=== PATIENT | male | born 1960 | race Caucasian/White ===

== ENCOUNTER 2020-10-18 08:30 | Outpatient (CLI) | payer SELFPAY ==
--- NOTE | 2020-10-18 08:49 | ECG_ITS ---
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 Baseline heart rate was 66 beats per minute. Baseline blood pressure was 154/100 millimeters of mercury. Target heart rate was 161 beats per minute. Maximum heart rate achieved was 141, which was 87 % of the target heart rate. Maximum blood pressure was 237/124 millimeters of mercury. Total exercise time was 4 minutes 55 seconds. Maximum METs achieved was 6.3, maximum VO2 was 22.1. The reason for ending the test was maximum effort achieved. The patient complained of shortness of breath during the stress test, which then resolved at the end of the test. ELECTROCARDIOGRAM: BASELINE: Sinus rhythm, normal axis, no significant ST-T changes at the baseline noted. EXERCISE: At the peak exercise level, no significant ST-T changes suggestive of ischemia noted. RECOVERY: During the recovery period, heart rate dropped appropriately. No significant ST-T changes in the recovery suggestive of ischemia noted. CONCLUSION: 1. Exercise capacity poor. 2. Heart rate response was [tachycardic 3. Blood pressure response was [hypertensive 4. Symptoms not suggestive of ischemia. 5. Electrocardiogram portion of the stress test was not suggestive of ischemia. 6. Nuclear scan will be documented separately. Please note that due to poor exercise capacity and under achievements of METs specificity and sensitivity of EKG segment of stress test will be low. Electronically Signed On 10-18-2020 12:15:03 TIE FASTENER by PAOLA DUBOIS [id number]
--- NOTE | 2020-10-18 08:50 | NMCV_ITS ---
NM kartik perf SPECT r/s* [id number] Leroy Freeman Age: 60 Gender: M : 1960 Exam Date: 10/18/2020 09:59 Ordering Phys: Tonja Salmon Technologist: YULISA Lomax Exam Location: [facility] Indications: Chest pain STRESS TEST Please see separate stress test report in [facility] for full findings IMAGE PROTOCOL Rest/Stress 1 Exercise Day Radiopharmaceutical Dose (mCi) Administration Site Administered by Rest: Tc-99m 10.6 IV Alicia Kriss, SANDBLASTER GLASS Sestamibi Stress:Tc-99m 32.3 IV Alicia Kriss, SANDBLASTER GLASS Sestamibi Rest: 18-Oct-2020 60 Discovery 630 Stress: 18-Oct-2020 60 Discovery 630 Radiopharmaceutical was injected at 85 % maximum heart rate. Supine position only as patient was unable to lay prone. SPECT RESULTS Technical Quality: Good Raw Data Analysis: Soft tissue attenuation Image Corrections: No attenuation or motion correction applied Summed Stress Score: 19 Summed Rest Score: 0 Summed Difference Score: 19 PERFUSION FINDINGS Large area of severe reversibility noted on the stress images from basal to distal anterior anteroseptal and distal lateral wall suggestive of severe ischemia in LAD territory. Please note that patient was not able to perform prone images therefore cannot rule out artifact. FUNCTIONAL RESULTS (calculated via Gated SPECT) Stress Image LV EF (%): 60 Stress EDV (mL):141 TID: 1.18 Stress ESV (mL):57 FUNCTIONAL FINDINGS: Anterior and apical wall severe hypokinesis IMPRESSIONS Large area of severe ischemia noted in proximal to distal anterior anteroseptal and distal circumflex wall suggestive of high-grade lesion in LAD territory.TID ratio is elevated suggestive of ischemia in the absence of other parameters. EKG segment will be documented separately. This is a positive nuclear stress test. Tia Gutierrez MD (Electronically Signed) Final Date: 18 October 2020 12:10 S
[2020-10-18 08:51] VITALS: BMI 29.8
[2020-10-18 10:54] VITALS: BP 169/88; PULSE 87
--- NOTE | 2020-10-18 12:30 | PC.NURSE ---
STRESS TEST NOTE: DR DUBOIS WAS MADE AWARE OF THE EKG CHANGES WHILE THE PATIENT WAS ON THE TREADMILL AND ALSO THE CHANGES IN THE NUCLEAR IMAGES PRE AND POST TREADMILL. THE PATIENT AND HIS SPOUSE WERE BROUGHT TO [facility] ROOM 4. DR DUBOIS EXPLAINED THE NEED FOR AN ANGIOGRAM TO BE DONE ZEHRA. IT WAS AGREED THAT THE PATIENT WOULD GET A RAPID COVID TEST NOW ALONG WITH PRE CATH LABS, THEN HE WILL BE SEEN IN [facility] TODAY. LHC WAS SCHEDULED BY THIS NURSE WITH SERVANDO FOR MONDAY OCTOBER 19, 2020 AT 0700 WITH A CHECK IN TIME OF 0600. ORDERS WERE GIVEN BY DR DUBOIS FOR THE AFOREMENTIONED LABS WELL THE LHC AND A REPEAT RAPID COVID IN THE AM. LONG THE PATIENT HAS 2 NEGATIVE RAPID COVID TESTS WE WILL CONTINUE WITH THE LHC. THIS WAS ALL DISCUSSED IN DETAIL WITH THE PATIENT, HIS SPOUSE, DR DUBOIS, AND THIS NURSE. ALL PARTIES WERE IN AGGREANCE. THE RAPID COVID TEST AND LABS WERE DRAWN AND SENT TO LAB THEN THE PATIENT AND HIS SPOUSE WERE ESCORTED TO [facility] TO SEE DR DUBOIS IN THE CLINIC.
[2020-10-18 13:09] LABS: Basophils # 0.1 10^3/uL (0.0-0.1); Basophils % 0.6 %; Eosinophils # 0.3 10^3/uL (0.0-0.8); Eosinophils % 2.7 %; Hematocrit 54.9 % (42.0-52.0); Hemoglobin 17.6 g/dL (11.7-16.6); Lymphocytes # 3.2 10^3/uL (0.8-4.8); Lymphocytes % 31.8 %; Mean Corpuscular HGB Conc 32.1 g/dL (30.0-36.0); Mean Corpuscular Hemoglobin 29.6 pg (28.0-34.0); Mean Corpuscular Volume 92.4 fL (80-94); Monocytes # 0.8 10^3/uL (0.2-0.9); Monocytes % 7.6 %; Neutrophils % 56.4 %; Nucleated Red Blood Cells % 0 %; Platelet Count 159 10^3/cmm (130-400); Red Blood Count 5.94 10^6/uL (4.1-5.3); Red Cell Distribution Width 12.9 % (12.1-15.1); White Blood Count 9.9 10^3/uL (4.0-10.0)
[2020-10-18 13:31] LABS: INR 0.98 (0.8-1.2)
[2020-10-18 13:36] LABS: Anion Gap 11.7 (5-19); Blood Urea Nitrogen 24 mg/dL (6-20); Calcium 9.4 mg/dL (8.5-10.5); Carbon Dioxide 29 mmol/L (22-29); Chloride 101 mmol/L (98-107); Glomerular Filtration Rate 86.4 mL/min (90-130); Glucose 137 mg/dL (65-115); Osmolality Calculated 290 mOsm/kg (285-295); Potassium 4.7 mmol/L (3.5-5.1); Sodium 137 mmol/L (136-145)
[2020-10-18 13:40] LABS: SARS Covid-2 Antigen Negative (Negative)
== END 2020-10-18 08:31 | disposition home or self-care (01) ==
LOC: CDL 08:37
PROVIDERS: Internal Medicine Cardiovascular Disease; PCP Family Medicine; Visit Provider Registered Nurse
DX: Z01.812 Encounter for preprocedural laboratory examination (principal); Z11.59 Encounter for screening for other viral diseases; R07.9 Chest pain, unspecified; I24.9 Acute ischemic heart disease, unspecified
CPT/HCPCS: 78452; 80048; 85025; 85610; 87426; 93017; A9500

== ENCOUNTER 2020-10-19 05:58 | Day surgery (SDC) | payer SELFPAY ==
[2020-10-19] VITALS (35 sets, daily range): BP systolic 103–162; BP diastolic 63–91; PULSE 51–80; RESP 10–26; TEMP 35.9–36.8; O2SAT 91–96
[2020-10-19] MEDS: diphenhydrAMINE 50 mg Capsule PO (06:21)
[2020-10-19 06:37] LABS: SARS Covid-2 Antigen Negative (Negative)
--- NOTE | 2020-10-19 07:00 | XACV_ITS ---
Ht: 193 cm Wt: 163 kg BSA: 3.02 m2 Gender: Male : 1960 Exam Priority: Routine Procedure(s): Procedure Description: Diagnostic procedure Procedure Description: PCI procedure Procedure Description: Left Heart Catheterization Procedure Description: Drug Eluting Coronary Stent Procedure Description: PTCA Diagnostic Cath Status: Elective Diagnostic Findings * LM has 0% stenosis. * CX has 0% stenosis. * RCA has 0% stenosis. * Mid Left Anterior Descending Coronary Artery: Severe 90% stenosis, RIANA: 2 flow. * Coronary angiography shows right dominance. Interventional Findings * Mid Left Anterior Descending Coronary Artery: 90% stenosis treated with AB TREK 3.00X12 RX BALLOON, MDT R BOB 4.0X12 BRIAN, and MDT ASHLEY EUPHORA RX 4.85J37AH BALLOON. 0% residual stenosis, RIANA: 3 flow. Conclusions 1. Indication for 2. left heart cath: 3. Abnormal stress test with chest pain and shortness of breath. 4. There is severe coronary artery disease with one vessel disease. 5. Mid Left Anterior Descending Coronary Artery was treated with two Balloon and Drug Eluting Stent. Recommendations * 1-Return to inpatient for close monitoring and routine cath care 2-Risk factor modification for secondary prevention 3-Statin and aspirin 81 mg life--long, if tolerated 4-Patient was pre-loaded with 600 mg of Plavix, continue Plavix 75mg p.o. daily for at least one year. We will assess at the end of one year again to continue if further or not 5-Continue optimal medical management 6-Follow up with Dr. Gutierrez in four weeks and your primary care in 10 days. Diagnostic RX Recommendation: PCI w/o planned CABG Clinical Evaluation EBL: 5mL-10mL Procedural Details Procedure Consent Obtained. Admit Source: Out Patient. Pre-Procedure Time Out. Identified patient by full name and date of as verbalized by the patient/guarantor. Does the consent match the physician's order: Yes. Accurate & Complete Informed Consent: Yes. Inpatient/Outpatient History & Physical on Chart: Yes. If H&P is completed, is and addenduem needed: N/A; If yes, is the addendum complete: N/A. Visualize and Verify Site with Patient/Guarantor: N/A. Relevant Radiology Images available: N/A. Pre-op teaching completed and patient verbalized understanding. The risks, benefits, and alternatives of sedation and/or procedure were discussed by physician. The patient agrees to continue. Procedure started. Correct patient, site and procedure confirmed by cath team. PERRLA. Strong, equal hand hot man bilaterally. Lungs clear x 5 lobes. IV Site on Arrival: 20 gauge in the left anticubital. Pre Procedural Pulses: bilateral dorsalis pedis was 3+. Pre Procedural Pulses: bilateral posterior tibial was 3+. Pre Procedural Pulses: bilateral radial was 3+. Oxygen started at 2liters/min via nasal canula. bilateral groins was prepped with chloroprep then draped in the usual sterile fashion. right radial was prepped with chloroprep then draped in the usual sterile fashion. Baseline sample Acquired. HR: 63 BPM. Physician notified. Baseline sample Acquired. HR: 58 BPM. Physician arrived. Physician scrubbed in. Immediate Pre-Procedure Time Out. Correct Patient: Yes; Correct Procedure: Yes; Correct Site: Yes; Correct Patient Position: Yes; Correct Supplies: Yes; Dried Flammable Prep: Yes; Blood Products Available: NA;. Lidocaine 1% infiltrated to the right radial. Lidocaine 1% infiltrated to the right groin. Arterial access obtained with micropuncture set. A 5 serbian JL4 catheter in over wire. Multiple views taken of left coronary artery. Catheter out. A 5 serbian JR4 catheter in over wire. Multiple views taken of right coronary artery. 6 serbian XB 3.5 guide catheter was inserted over the wire. pics of the Left. Runthrough guidewire was advanced through the guide catheter to lesion in the mid LAD. Inflation number : 1 A AB TREK 3.00X12 RX BALLOON was prepped and advanced across the Mid LAD , then inflated to 12 AYDEN for 0:07 seconds. Inflation number: 2 The AB TREK 3.00X12 RX BALLOON was reinflated across the Mid LAD, to 14 AYDEN for 0:06 seconds. Inflation number: 3 The AB TREK 3.00X12 RX BALLOON was reinflated across the Mid LAD, to 10 AYDEN for 0:07 seconds. Balloon out. Inflation Number : 4 A MDT R BOB 4.0X12 BRIAN -Lot Number#[id number] exp date: 01-21-2022 was prepped and advanced across the Mid LAD. The stent was deployed at 16 AYDEN for 0:20 seconds. Stent balloon out over wire. Inflation number : 5 A MDT NC EUPHORA RX 4.71E60RF BALLOON was prepped and advanced across the Mid LAD , then inflated to 12 AYDEN for 0:20 seconds. Inflation number: 6 The MDT NC EUPHORA RX [id number] BALLOON was reinflated across the Mid LAD, to 14 AYDEN for 0:10 seconds. Balloon out. Wire out. checking results. Guide catheter out. ACT drawn. Results 231 seconds. Therapeutic limits - pre-heparin administration 90-150 seconds and monitoring heparin during a vascular procedure >250 seconds. Sheath(s) sutured into position with 2-0 silk and sterile 4x4's and Op-site applied over the site. No oozing or signs and symptoms of hematoma noted. Post Procedure: Pulses reassessed and unchanged. PERRLA. Strong, equal hand hot man bilaterally. No VTE prophylaxis required. 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 Chest Pain Symptom Assessment: Typical Angina Symptoms. Cardiovascular Instability: No,. PCI Indication: LAD stenosis. Post-op diagnosis: stent to LAD good results. \. Complications: none. Medication's Wasted: Other = fentanyl 50 mg. Medication's Wasted: Lidocaine 1% = 18 mL. Medication's Wasted: Heparin = 4000 units. Medication's Wasted: Nitro = 50 mg. Total IV fluids: 69.7 mL. Contrast type used: Visipaque 320 mgI/mL, 500 mL bottle. Contrast Material : Visipaque 197 ml. Estimated blood loss: 5mL-10mL. Procedure completed. A Suture was successful obtaining hemostatsis at the Right Femoral artery insertion site. Patient transferred by bed to ICU. Vital chart was stopped. Access Site Site: Right Femoral artery Sheath Size: 6 Fr Hemostasis Method: Suture Hemostasis Success: Successful Procedure Medications Start: 7:41 AM Stop: 7:41 AM Medication: Fentanyl Amount: 50 mcg Route: I.V. Start: 7:51 AM Stop: 7:51 AM Medication: Versed Amount: 2 mg Route: I.V. Start: 7:51 AM Stop: 7:51 AM Medication: Fentanyl Amount: 50 mcg Route: I.V. Start: 8:00 AM Stop: 8:00 AM Medication: Versed Amount: 1 mg Route: I.V. Start: 8:00 AM Stop: 8:00 AM Medication: Fentanyl Amount: 50 mcg Route: I.V. Start: 8:13 AM Stop: 8:13 AM Medication: Heparin Amount: 8000 units Route: I.V. Start: 8:18 AM Stop: 8:18 AM Medication: Heparin Amount: 2000 units Route: I.V. Start: 8:21 AM Stop: 8:21 AM Medication: Versed Amount: 1 mg Route: I.V. I, the attending physician, have reviewed and verified all procedure medications. Yes, all medications given per verbal order History/Risk Factors Tobacco Use: Current/Recent(w/in 1 year) Report Signatures Finalized by Tia Gutierrez MD on 10/23/2020 07:08 PM
[2020-10-19] MEDS: sodium chloride 0.9% 1,000 ML 100 ML IV (09:00)
--- NOTE | 2020-10-19 09:30 | PC.NURSE ---
Patient to ICU from cath lab technologist at 0900. Patient oriented to room and call light, educated on activity restrictions. Patient verbalized understanding and did not have any further questions. Nurse to continue to monitor.
[2020-10-19 11:03] LABS: Partial Thromboplastin Time 55.7 SECONDS (23.9-36.7)
--- NOTE | 2020-10-19 11:15 | PC.NURSE ---
Dr. Gutierrez notified patient PTT was 55.7. Telephone order to pull sheath in 1 hour. RBTO Telphone order to discontinue IV fluids after 1 liter. RBTO.
--- NOTE | 2020-10-19 12:16 | USCV_ITS ---
Leroy Freeman Age: 60 Gender: M : 1960 Exam Date: 10/19/2020 09:35 Ordering Phys: Tia Gutierrez MD ([email or web address]) Technologist: Evelin Schultz Exam Location: [facility] [place] Indication: POST PCI BP: 127 / 75 HR: 68 Rhythm: Sinus Technical Quality: Very technically difficult study MEASUREMENTS (Male / Female) Normal Values 2D ECHO LV Diastolic Diameter PLAX 5.5 cm 4.2 - 5.9 / 3.9 - 5.3 cm LV Systolic Diameter PLAX 3.5 cm IVS Diastolic Thickness 1.7 cm 0.6 - 1.0 / 0.6 - 0.9 cm IVS Systolic Thickness 2.3 cm LVPW Diastolic Thickness 1.5 cm 0.6 - 1.0 / 0.6 - 0.9 cm LVPW Systolic Thickness 2.4 cm LVOT Diameter 2.1 cm LV Ejection Fraction 2D Teich 65.4 % LA Diameter 4.2 cm LA Width 3.7 cm LA Height 6.1 cm RA Width 3.8 cm RA Height 3.2 cm Aorta at Sinotubular Diameter 3.6 cm M-MODE LV Diastolic Diameter MM 4.8 cm 4.2 - 5.9 / 3.9 - 5.3 cm LV Systolic Diameter MM 2.4 cm LV Ejection Fraction MM Teich 81.3 % IVS Diastolic Thickness MM 1.4 cm 0.6 - 1.0 / 0.6 - 0.9 cm IVS Systolic Thickness MM 1.8 cm LVPW Diastolic Thickness MM 1.2 cm 0.6 - 1.0 / 0.6 - 0.9 cm LVPW Systolic Thickness MM 2.7 cm Aortic Annulus Diameter 3.0 cm LA Ao Ratio MM 1.7 MV E Point Septal Separation 1.0 cm DOPPLER AV Peak Velocity 128.0 cm/s LVOT Peak Velocity 113.0 cm/s AV Area Cont Eq vti 2.8 cm squared AV Area Cont Eq pk 3.0 cm squared MV Area PHT 5.0 cm squared Mitral E to A Ratio 1.2 MV E' Velocity 33.0 cm/s Mitral E to MV E' Ratio 6.5 Mitral E to LV E' Lateral Ratio 4.6 Mitral E to LV E' Septal Ratio 11.2 TR Peak Velocity 218.0 cm/s TR Peak Gradient 19.0 mmHg TV Peak E Velocity 41.0 cm/s Right Atrial Pressure 3.0 mmHg Pulmonary Artery Systolic Pressu 22.0 mmHg PV Peak Velocity 58.0 cm/s RV Acceleration Time 0.1 s RV Ejection Time 0.3 s RV AcT/ET 0.3 FINDINGS Left Ventricle Normal left ventricular cavity size. Normal left ventricular systolic function. No regional wall motion abnormalities. Left ventricular ejection fraction is estimated at 60 %.Grade I/IV diastolic dysfunction (abnormal relaxation filling pattern), normal to mildly elevated filling pressures. Grade II/IV diastolic dysfunction, moderately elevated filling pressures. Right Ventricle The right ventricle is normal in size and function. Right Atrium The right atrium is normal in size. Left Atrium The left atrium is normal in size. Mitral Valve Structurally normal mitral valve without significant stenosis or prolapse. There is no mitral regurgitation. Aortic Valve Structurally normal aortic valve without significant sclerosis or stenosis. There is no aortic regurgitation. Tricuspid Valve Structurally normal tricuspid valve without significant stenosis or regurgitation. Pulmonary artery systolic pressure is normal. Pulmonic Valve Structurally normal pulmonic valve without significant stenosis. There is no pulmonic regurgitation. Pericardium Normal pericardium without effusion. Aorta Normal ascending aorta dimension. CONCLUSIONS 1-Normal left ventricular cavity size. Normal left ventricular systolic function. No regional wall motion abnormalities. Left ventricular ejection fraction is estimated at 60 %.Grade I/IV diastolic dysfunction (abnormal relaxation filling pattern), normal to mildly elevated filling pressures. Grade II/IV diastolic dysfunction, moderately elevated filling pressures. 2-There is no pericardial effusion. 3-No significant valve abnormalities. 4-Pulmonary artery systolic pressure is within normal limits. 6-Right atrial pressure is around 5 mm of mercury. 7-There are no prior echocardiogram studies to compare. Tia Gutierrez MD (Electronically Signed) Final Date: 19 October 2020 18:54 S
--- NOTE | 2020-10-19 13:30 | PC.NURSE ---
Sheath pulled at 1315 per [address] order from dr. Gutierrez. Direct pressure held for 20 minutes, hemostasis achieved. Dressing applied. Patient tolerated well. Patient reeducated on activity restrictions, verbalized understanding. Nurse to continue to monitor.
[2020-10-19] MEDS: HYDROcodone-acetaminophen 5-325 mg Tablet 1 TAB PO (14:02)
--- NOTE | 2020-10-19 17:29 | PC.NURSE ---
Patient ambulated with nursing staff. Site reassessed, asymptomatic. Nurse to continue to monitor.
[2020-10-19] MEDS: isosorbide mononitrate ER 30 mg Tablet 15 MG PO (18:46)
--- NOTE | 2020-10-19 18:57 | PC.NURSE ---
Received report from GERALD Moreno. Patient resting in bed watching TV. Patient is s/p [facility] with PCI via right femoral access. Dressing in place to site remains c,d,i with no s/s of bleeding or hematoma formation observed. Instructed patient on site care and restrictions. Patient able to ambulate after 1930. Patient verbalized complete understanding of all instructions stating, I will be glad when I can get up. I am tired of this bed. Patient denies pain, other discomforts or needs. No distress observed. Assessment completed as documented.
[2020-10-20] VITALS (54 sets, daily range): BP systolic 95–167; BP diastolic 53–101; PULSE 46–71; RESP 0–28; TEMP 36.4–36.8; O2SAT 95–96
[2020-10-20] MEDS: CLOPIDOGREL 75 MG TABLET 1 EACH PO (10:30)
[2020-10-20] MEDS: ISOSORBIDE MONONITRATE 30 MG ER TABLET 0.5 EACH PO (10:30)
[2020-10-20] MEDS: metoprolol succinate ER (24 HR) 25 mg Tablet 0.5 EACH PO (10:30)
[2020-10-20] MEDS: ASPIRIN 325 MG 1 EACH PO (10:30)
--- NOTE | 2020-10-20 11:29 | PM.SDS ---
Short Stay Summary Providers Date of Admit/Discharge: 10/20/20 Attending Provider: Tia Gutierrez MD Primary Care Provider: DO GINA Morgan History of Present Illness Leroy Freeman is a 60 year old male past medical history significant for hypertension obesity for typical angina like picture underwent stress test which turned out to be positive in LAD territory. Yesterday patient underwent left heart cath which revealed significant high-grade 95% stenosis of the mid LAD. It was treated with balloon angioplasty followed by drug-eluting stent. Patient post op did fine without any complication. His groin wound looks good. He is moving around his blood pressure is moderately elevated I would therefore add GIOVANNY inhibitor. Beta-fred has been discontinued because of bradycardia. Statin was added. Aspirin and Plavix will be continued. Patient has been advised not to stop Plavix for at least 1 year. Patient has been advised to keep log of blood pressure pulse and send it is after 10 days. We will see him back in our clinic 7 days with our cardiology nurse practitioner Selena Del Real and myself in 3 months. Patient can return to work by 24 October 2020. 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 Home Meds/Allergies Home Medications and Allergies Allergies Allergy/AdvReac Type Severity Reaction Status Date / Time No Known Allergies Allergy Verified 10/18/20 13:00 PFSH Acute PFSH: Social History Smoking and tobacco status: heavy tobacco smoker cigarettes Packs smoked per day: 1.5 Dietary Habits: Current diet type/program: regular Vitals/I&O/Wt Last Vital Signs Temp 98.3 F 10/20/20 08:00 Pulse 66 10/20/20 08:00 Resp 18 10/20/20 08:00 BP 167/101 10/20/20 08:00 Pulse Ox 96 10/20/20 08:00 10/19/20 10/20/20 10/20/20 22:59 06:59 14:59 Intake Total 1220 / 1460 Balance 1220 / 1060 Weight last 48 hrs Weight 363 lb 8 oz Physical Exam Narrative: EXAM NARRATIVE: GENERAL: Patient is alert, awake and oriented x3. NECK: No jugular vein distension. HEENT: No cyanosis. No icterus. No pallor. HEART: Regular S1 and S2. No murmur, rub or gallop. LUNGS: Clear to auscultate bilaterally. ABDOMEN: Soft, nontender and nondistended. Positive bowel sounds. No guarding, rebound or tenderness. CENTRAL NERVOUS SYSTEM: Grossly nonfocal. EXTREMITIES: Lower extremities without edema bilaterally. Right groin wound looks good no hematoma. 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 request for service Routin e Exams 10/19/20 07:00 Taken Discharge Plan Discharge Patient Disposition: Home Condition: Stable Prescriptions: New rosuvastatin 20 mg capsule, sprinkle 20 mg PO DAILY Qty: 30 RF: 3 lisinopril 5 mg tablet 5 mg PO DAILY Qty: 30 RF: 5 Continued nitroglycerin [Nitrostat] 0.4 mg tablet, sublingual 0.4 mg sublingual Q5M PRN (Reason: chest pain) Qty: 25 RF: 6 clopidogrel 75 mg tablet 75 mg PO DAILY Qty: 90 RF: 6 Changed aspirin 325 mg tablet 81 mg PO DAILY Qty: 30 RF: 6 Discontinued metoprolol succinate 25 mg tablet extended release 24 hr 12.5 mg PO DAILY Qty: 15 RF: 6 isosorbide mononitrate 30 mg tablet extended release 24 hr 15 mg PO BID Qty: 30 RF: 6 clopidogrel 300 mg tablet 600 mg PO ONCE Qty: 2 RF: 0 Discharge Orders: Discharge Order (Routine); Ordered 10/20/20 Ordered By: Tia Gutierrez Referrals: Gabriel King M.D [Physician] - 10/25/20 1:30 pm (You have a post procedure follow up with Dr. King at [facility] on October 25 at 1:30pm) Discharge Diet: Cardiac Discharge Activity: Increase activity as tolerated Patient Instructions: Lisinopril (By mouth), Rosuvastatin (By mouth), Left Heart Catheterization (DC), Coronary Angioplasty (DC), Post Angiogram Home Care Instructions Activity Restrictions/Additional Instructions: Follow-up with Dr. Gutierrez in 3 months (This appointment will be made when you see Dr. King on SaturdayOctober 25 at 1:30pm) Attestations Medical Necessity Statement*: Patient require continuation hospitalization for above defined care. Time Spent in Patient Care*: less than 30 min Specific Discharge Activities: Specific discharge activities: educating patient Quality Metrics Clinical Quality Measures: During this hospital stay, did patient experience: None Coding Level of Care Code Established Pt Acute Software Test Analyst for Chg Fwd Patient Type Established History Detailed Exam Detailed Medical Decision Making Moderate Complexity
--- NOTE | 2020-10-20 13:20 | PC.NURSE ---
Addendum entered by Perla Urbano RN 10/20/20 13:24: 1230 pm Original Note: Patient discharged home at this time self care. Patient provided with all discharge instructions as well as educated on new medications and restrictions. Patient verbalized understanding of all information provided. IV discontinued cath intact min bleeding noted bandage applied. patient assisted to wheel chair and accompanied to private vehicle by staff patient alert oriented and in stable condition at departure. All belongings and discharge instructions in hand.
== END 2020-10-20 12:30 | disposition home or self-care (01) ==
LOC: CCL 06:01 → ICU 12:17 → CSU 15:24
PROVIDERS: PCP Family Medicine; Visit Provider Internal Medicine Cardiovascular Disease
DX: I25.10 Atherosclerotic heart disease of native coronary artery without angina pectoris (principal); R94.39 Abnormal result of other cardiovascular function study; R07.9 Chest pain, unspecified; R06.02 Shortness of breath; Z87.891 Personal history of nicotine dependence; I10 Essential (primary) hypertension; E66.9 Obesity, unspecified; Z68.41 Body mass index [BMI] 40.0-44.9, adult
CPT/HCPCS: 12345; 36415; 85347; 85730; 87426; 93306; 93454; C1725; C1769; C1874; C1887; C1894; C9600; J1644; J2250; J3010; J3490; J7030; Q0163; Q9967

== ENCOUNTER 2021-01-31 11:20 | Outpatient (CLI) | payer SELFPAY ==
--- NOTE | 2021-01-31 11:31 | XRR_ITS ---
PROCEDURE INFORMATION: Exam: XR Right Knee Exam date and time: 01/31/2021 11:48 AM Age: 60 years old Clinical indication: Injury or trauma; Fall; Swelling or effusion of joint; Knee; Blunt trauma; Right; Additional info: HX of falling/effusion of R knee/acute pain of right knee TECHNIQUE: Imaging protocol: XR Right knee. Views: 3 views. COMPARISON: No relevant prior studies available. FINDINGS: Bones/joints: There is narrowing of the lateral and patellofemoral compartments consistent with osteoarthritis. No acute bony abnormalities seen. Soft tissues: Normal. XR/XR knee RT 3V* [id number] IMPRESSION: No acute bone abnormality.
== END 2021-01-31 11:21 | disposition home or self-care (01) ==
PROVIDERS: PCP Family Medicine; Visit Provider Registered Nurse
DX: Z91.81 History of falling (principal); M25.461 Effusion, right knee; M25.561 Pain in right knee
CPT/HCPCS: 73562

== ENCOUNTER 2024-04-20 09:39 | Observation (INO) | payer BC, MEDICAID, SELFPAY ==
[2024-04-20] VITALS (8 sets, daily range): BP systolic 121–163; BP diastolic 61–97; PULSE 52–65; RESP 16–18; TEMP 36.6–36.8; O2SAT 92–98; BMI 42.5
--- NOTE | 2024-04-20 09:54 | CT_ITS ---
WS: [id number] CT HEAD NONCONTRAST HISTORY: Symptoms of acute stroke TECHNIQUE: Contiguous axial imaging performed through the brain in 2.5 mm imaging. Bone and soft tiss ue windows. Sagittal and coronal reformats reviewed. All CT scans at [facility] use at least one of these dose optimization techniques: automated exposure control; mA and/or kV adjustment per pa tient size (includes targeted exams where dose is matched to clinical indication); or iterative recon struction. DLP: 1227.08 mGy COMPARISON: None available. No acute intracranial hemorrhage, midline shift or mass effect. There is an area of decreased attenuation with loss of the barksdale-white matter differentiation involvin g the inferior RIGHT cerebellum extending towards the cerebellar peduncle. There is a slight mass eff ect upon the midline. No midline shift otherwise. There is no associated hemorrhage. Additional areas of scattered low-attenuation in the periventricular white matter above the level of the lateral vent ricles. Mild atrophy and mild small vessel ischemic disease. Ventricles: Normal size with no hydrocephalus. No inferior displacement of the cerebellar tonsils. Paranasal sinuses: As visualized are clear. Mastoid air cells: Well pneumatized. Calvarium and scalp: Skull is intact with no soft tissue edema or swelling. CT/CT head thrombolytic 04500 IMPRESSION: 1. Large inferior RIGHT cerebellar infarct with loss of the adjacent barksdale-whit e matter differentiation. Age-indeterminate but this is not acute. Subacute to remote. No prior studies for comparison. There does appear to be slight mass ef fect along the midline suggesting this is probably subacute. 2. Additional scattered, bilateral areas of decreased attenuation in the cereb ellum. Likely related to additional areas of small vessel ischemic disease. 3. No hemorrhage.
[2024-04-20 10:22] LABS: Hematocrit 56.2 % (37-53); Mean Corpuscular HGB Conc 34.2 g/dL (30-55); Mean Corpuscular Hemoglobin 30.5 pg (27-33); Mean Corpuscular Volume 89.3 fl (82-101); Platelet Count 157 10^3/cmm (157-399); Red Blood Count 6.29 10^6/uL (3.85-5.65); Red Cell Distribution Width 13.2 % (12.1-15.1); White Blood Count 10.98 10^3/uL (3.29-11.43)
--- NOTE | 2024-04-20 10:22 | ECG_ITS ---
[facility] Test Date: 2024-04-20 Pat Name: Leroy Freeman Department: Room: Gender: Male Pacs Specialist: : [id number] Requested By: Jeff Fermin Order Number: [id number] Pilo MD: Gabriel King M.D. Measurements Intervals [place] Rate: 52 P: 35 NC: 156 QRS: -4 QRSD: 96 T: -2 QT: 439 QTc: 411 Interpretive Statements SINUS BRADYCARDIA POSSIBLE RIGHT VENTRICULAR CONDUCTION DELAY [RSR (QR) IN V1/V2] No previous ECG available for comparison Electronically Signed On 04-20-2024 12:53:39 CDT by Gabriel King M.D. [email or web address]
[2024-04-20 10:23] LABS: Basophils # 0.1 10^3/uL (0.0-0.1); Basophils % 0.5 %; Eosinophils # 0.3 10^3/uL (0.0-0.8); Eosinophils % 3.1 %; Lymphocytes # 3.1 10^3/uL (0.8-4.8); Mean Platelet Volume 10.5 fL (7.4-10.4); Monocytes # 0.7 10^3/uL (0.2-0.9); Monocytes % 6.5 %; Neutrophils # 6.76 10^3/uL (1.8-7.7); Neutrophils % 61.5 %; Nucleated Red Blood Cells % 0 %
--- NOTE | 2024-04-20 10:27 | W.ED.NEUROSD ---
HPI - Neuro Symptoms/Deficit General: Chief Complaint: Neuro Symptoms/Deficit Stated Complaint: stroke like syptoms, high bp Time Seen by Provider: 04/20/24 09:51 Source: patient Mode of arrival: ambulatory History of Present Illness: 61-year-old male presents to the emergency room with complaint of right arm numbness from his right elbow to his hand feeling off balance as well feels unsteady on his feet. He has not had any headache no vision changes no difficulty with speech or swallowing. He has a history of coronary artery disease and has previously had a coronary stent placed. He had does take a baby aspirin a day but does not take any Plavix or any other anticoagulants. He has not noticed anything that exacerbates or relieves his symptoms no neck pain. Onset (ago): minute(s) Associated symptoms: Deny chest pain, cough, diaphoresis, fevers/chills, headache(s), anorexia, malaise, nausea, seizures, short of breath, syncope, tingling, vertigo, vomiting or weakness Treatments Prior to Arrival: none Review of Systems Const: Denies: fever(s), chills, malaise or diaphoresis Card: Denies: chest pain or syncope Resp: Denies: dyspnea GI: Denies: abdominal pain, nausea or vomiting : Denies: dysuria, urinary frequency or urinary urgency Musc: Denies: neck pain or back pain Skin/Breast: Denies: rash Neuro: Denies: headache(s) or vertigo [facility] ED PFSH: Medical History (Updated 04/20/24 @ 16:16 by Jeff Hansen DO) Diabetes mellitus, type II Dyslipidemia Hypertension Coronary artery disease Surgical History (Updated 04/20/24 @ 15:54 by Blanche Mandujano MD) History of cardiac catheterization 10/2020 Mid LAD 90% lesion stented, remaining vessels without stenosis History of coronary artery stent placement 10/2020 S/P cholecystectomy Family History Father Cancer Mother Cancer Sister Hypertension Denies family history of Diabetes CAD (coronary artery disease) Stroke Social History (Updated 04/20/24 @ 16:02 by Blanche Mandujano MD) Smoking and tobacco/nicotine status: current every day tobacco/nicotine user cigarettes Packs smoked per day: 1.5 Years cigarettes smoked: 40 Alcohol intake: never Substance/Drug Use: current Substance/Drug use frequency: daily NIH stroke score NIHSS: Level Of Consciousness - 1a: 0 Level Of Consciousness Questions - 1b: Both Correct Level Of Consciousness Commands - 1c: Both Correct Best Gaze - 2: Normal Visual Paez - 3: No Visual Loss Facial Palsy - 4: Normal Motor Arm Right - 5: No Drift Motor Arm Left - 5: No Drift Motor Leg Right - 6: No Drift Motor Leg Left - 6: No Drift Limb Ataxia - 7: Absent Sensory - 8: Normal Best Language - 9: No Aphasia Dysarthia - 10: Normal Extinction And Inattention - 11: 0 Score: Total Score: 0 Physical Exam Const: COMMON NORMALS: no acute distress GENERAL APPEARANCE: cooperative and comfortable ORIENTATION/CONSCIOUSNESS: Yes awake, Yes oriented to person, Yes oriented to place and Yes oriented to time HENMT: COMMON NORMALS: normocephalic, atraumatic and hearing grossly normal bilaterally HEAD & SCALP: normocephalic and atraumatic Resp: COMMON NORMALS: normal respiratory effort, No retractions, No use of accessory muscles and clear to auscultation bilaterally AUSCULTATION: clear to auscultation bilaterally Cardio: COMMON NORMALS: regular rate, regular rhythm and No murmurs present (Cardio) RATE: regular rate RHYTHM: regular rhythm GI: COMMON NORMALS: Soft to palpation and No hepatosplenomegaly present AUSCULTATION: Yes normoactive bowel sounds PALPATION: Yes Soft to palpation, No Tenderness to palpation present (GI), No Guarding due to palpation present (GI) and Yes No hepatosplenomegaly present Extremity: COMMON NORMALS: normal to inspection, capillary refill normal, no clubbing, cyanosis or edema, no calf tenderness and no pedal edema Neuro: SENSORIUM/ORIENTATION: Yes oriented to person, Yes oriented to place and Yes oriented to time Skin: COMMON NORMALS: no rashes or lesions noted GENERAL SKIN EXAM: no rashes or lesions noted Course Vital Signs: Vital signs: Vital Signs Temperature 98.1 F 04/20/24 09:51 Pulse Rate 65 04/20/24 14:52 Respiratory Rate 18 04/20/24 14:52 Blood Pressure 143/74 04/20/24 14:52 Pulse Oximetry 96 04/20/24 14:52 Oxygen Delivery Me thod Room Air 04/20/24 14:52 MDM - Neuro Symptoms/Deficit Medical Decision Making Patient presents with clinically what appears to be a posterior stroke which is by history probably 3 to 4 days old. Due to the history he is out of the window for any thrombolytic intervention. He is also out of the window for any consideration of embolectomy. His CT confirms this with a large right inferior cerebellar stroke with loss of adjacent barksdale-white matter differentiation. Does not appear to be acute. Per radiology read it is likely subacute based on the appearance. This is consistent with his presenting complaint and there is no hemorrhage present. Patient has several other areas of small ischemic disease. Patient is a smoker. He has a known history of coronary artery disease CTA of the head and neck did not show any acute embolism. Will admit for further workup for secondary prevention. Medical Records I reviewed the patient's medical records. Lab Data I reviewed the patient's lab results. 04/20/24 10:02 04/20/24 10:[address] 04/20/24 09:54 IMPRESSION: 1. Large inferior RIGHT cerebellar infarct with loss of the adjacent barksdale-white matter differentiation. Age-indeterminate but this is not acute. Subacute to remote. No prior studies for comparison. There does appear to be slight mass effect along the midline suggesting this is probably subacute. 2. Additional scattered, bilateral areas of decreased attenuation in the cerebellum. Likely related to additional areas of small vessel ischemic disease. 3. No hemorrhage. Head/Neck CTA 04/20/24 10:28 IMPRESSION: 1. No significant cervical carotid artery stenosis. Small amount of plaque at the bifurcations. 2. No occlusion or significant atherosclerosis [place]. 3. Patent vertebral arteries. 4. Unremarkable [place]. Laboratory Results WBC 10.98 10^3/uL (3.29-11.43) 04/20/24 10:02 RBC 6.29 10^6/uL (3.85-5.65) H 04/20/24 10:02 Hgb 19.20 g/dL (11.27-16.99) H 04/20/24 10:02 Hct 56.2 % (37-53) H 04/20/24 10:02 MCV 89.3 fl (82-101) 04/20/24 10:02 MCH 30.5 pg (27-33) 04/20/24 10:02 MCHC 34.2 g/dL (30-55) 04/20/24 10:02 RDW 13.2 % (12.1-15.1) 04/20/24 10:02 Plt Count 157 10^3/cmm (157-399) 04/20/24 10:02 MPV 10.5 fL (7.4-10.4) H 04/20/24 10:02 Neut % (Auto) 61.5 % 04/20/24 10:02 Lymph % (Auto) 28.0 % 04/20/24 10:02 [place] % (Auto) 6.5 % 04/20/24 10:02 Eos % (Auto) 3.1 % 04/20/24 10:02 Baso % (Auto) 0.5 % 04/20/24 10:02 Neut # (Auto) 6.76 10^3/uL (1.8-7.7) 04/20/24 10:02 Lymph # (Auto) 3.1 10^3/uL (0.8-4.8) 04/20/24 10:02 [place] # (Auto) 0.7 10^3/uL (0.2-0.9) 04/20/24 10:02 Eos # (Auto) 0.3 10^3/uL (0.0-0.8) 04/20/24 10:02 Baso # (Auto) 0.1 10^3/uL (0.0-0.1) 04/20/24 10:02 Nucleated RBC % (auto) 0 % 04/20/24 10:02 Nucleated RBCs # 0.0 /100WBC 04/20/24 10:02 PT 13.50 SECONDS (12.1-14.9) 04/20/24 10:02 INR 1.00 (0.8-1.2) 04/20/24 10:02 APTT 29.5 SECONDS (23.9-36.7) 04/20/24 10:02 Sodium 137 mmol/L (136-145) 04/20/24 10:02 Potassium 4.5 mmol/L (3.5-5.1) 04/20/24 10:02 Chloride 105 mmol/L (98-107) 04/20/24 10:02 Carbon Dioxide 21 mmol/L (22-29) L 04/20/24 10:02 Anion Gap 15.5 (5-19) 04/20/24 10:02 BUN 23 mg/dL (8-23) 04/20/24 10:02 Creatinine 0.8 mg/dL (0.7-1.2) 04/20/24 10:02 GFR Calculation 98.0 mL/min (90-130) 04/20/24 10:02 Glucose 145 mg/dL (65-115) H 04/20/24 10:02 POC Glucose 159 mg/dL (70-110) H 04/20/24 10:24 Calculated Osmolality 290 mOsm/kg (285-295) 04/20/24 10:02 Calcium 9.6 mg/dL (8.5-10.5) 04/20/24 10:02 Total Bilirubin 0.7 mg/dL (0.15-1.2) 04/20/24 10:02 AST 18 U/L (0-40) 04/20/24 10:02 ALT 18 U/L (0-41) 04/20/24 10:02 Alkaline Phosphatase 79 U/L (40-130) 04/20/24 10:02 Total Protein 7.9 g/dL (6.6-8.7) 04/20/24 10:02 Albumin 4.4 g/dL (3.5-5.2) 04/20/24 10:02 Globulin 3.5 g/dL (1.3-4.6) 04/20/24 10:02 Urine Color Yellow (Yellow) 04/20/24 10:21 Urine Appearance Clear (CLEAR) 04/20/24 10:21 Urine pH 5 (5-7) 04/20/24 10:21 Ur Specific [place] 1.020 (1.005-1.030) 04/20/24 10:21 Urine Protein Trace (Negative) 04/20/24 10:21 Urine Glucose (UA) Norm (Normal) 04/20/24 10:21 Urine Ketones 1+ (Negative) H 04/20/24 10:21 Urine Blood 3+ (Negative) H 04/20/24 10:21 Urine Nitrate Negative (Negative) 04/20/24 10:21 Urine Bilirubin 1+ (Negative) H 04/20/24 10:21 Urine Urobilinogen 1 mg/dL (Negative) H 04/20/24 10:21 Ur Leukocyte Esterase Negative (Negative) 04/20/24 10:21 Urine RBC 5-10 /hpf (0-2) H 04/20/24 10:21 Urine WBC 0-4 /hpf (0-5) H 04/20/24 10:21 Ur Squamous Epith Cells 0-4 /hpf (0-5) H 04/20/24 10:21 Amorphous Sediment Not Reportable 04/20/24 10:21 Urine Bacteria 1+ /hpf (NONE) H 04/20/24 10:21 Urine Mucus 2+ /hpf 04/20/24 10:21 Urine Opiates Screen Negative ng/mL (Negative) 04/20/24 10:21 Ur Barbiturates Screen Negative ng/mL (Negative) 04/20/24 10:21 Ur Phencyclidine Scrn Negative ng/mL (Negative) 04/20/24 10:21 Ur Amphetamines Screen Negative ng/mL (Negative) 04/20/24 10:21 U Benzodiazepines Scrn Negative ng/mL (Negative) 04/20/24 10:21 Urine Cocaine Screen Negative ng/mL (Negative) 04/20/24 10:21 U Marijuana (THC) Screen Positive ng/mL (Negative) H 04/20/24 10:21 All radiology interpretation(s) finalized by discharge Discharge Plan Discharge Patient Disposition: Admitted As Inpatient Admit Provider: Blanche Mandujano Clinical Impression: Cerebellar stroke, acute, Polycythemia, Hypertension, Smoker Condition: Stable Coding Level of Care Code ED [employer] Camera Person for Jb Rodriguez
[2024-04-20 10:28] LABS: Glucose Point of Care 159 mg/dL (70-110)
--- NOTE | 2024-04-20 10:28 | CT_ITS ---
WS: [id number] CT ANGIOGRAM CEREBRAL AND CAROTID ARTERIES HISTORY: gait ataxia, imbalance TECHNIQUE: CT angiogram is performed of the carotid and cerebral arteries. During arterial injection imaging is obtained from the skull vertex to the aortic arch in 1.25 mm imaging. Coronal and sagittal reformats are submitted. Additional multi planar reformats of the carotid and cerebral arteries are submitted, MIP imaging also reviewed. NASCET criteria utilized. All CT scans at [facility] e at least one of these dose optimization techniques: automated exposure control; mA and/or kV adjust ment per patient size (includes targeted exams where dose is matched to clinical indication); or iter ative reconstruction. CONTRAST: Omnipaque 350; 100 mL IV. DLP: 651.35 mGy.cm COMPARISON: None available. Carotid Angiogram: Right carotid: Common carotid artery: Arises normally from the innominate artery. No significant plaque or stenosis. Internal carotid artery: Small amount of calcified plaque at the origin. No stenosis. External carotid artery: Patent. Left carotid: Common carotid artery: Arises normally from the aorta. No significant plaque or stenosis. Internal carotid artery: Small amount of plaque at the origin and bifurcation. No stenosis. External carotid artery: Patent. Right vertebral artery: Codominant. Left vertebral artery: Codominant. Arises normally from the subclavian artery. Subclavian arteries: No stenosis or significant abnormality. Upper thorax: Chronic emphysema at the lung apices. No pneumonia. Atherosclerosis aortic arch. Thyroid gland: Normal. Osseous structures: Mild increase in cervical lordosis. CEREBRAL ANGIOGRAM: Intracranial vertebral arteries: Normal with no significant atherosclerosis. Basilar artery: No significant stenosis or occlusion. No aneurysm. Intracranial Internal carotid arteries: Demonstrates no significant stenosis or plaque. Middle cerebral arteries: Normal. Anterior cerebral arteries and ACOM: Normal. Posterior cerebral arteries and PCOM's: Normal. Dural venous sinuses are normally enhancing. Mastoid air cells: Normal. Paranasal sinuses: Normal. Calvarium: Normal. CT/CT angio headneck* [id number] IMPRESSION: 1. No significant cervical carotid artery stenosis. Small amount of plaque at the bifurcations. 2. No occlusion or significant atherosclerosis [place]. 3. Patent vertebral arteries. 4. Unremarkable [place].
[2024-04-20 10:32] LABS: Partial Thromboplastin Time 29.5 SECONDS (23.9-36.7)
[2024-04-20 10:35] LABS: Alanine Aminotransferase 18 U/L (0-41); Albumin Level 4.4 g/dL (3.5-5.2); Alkaline Phosphatase 79 U/L (40-130); Aspartate Amino Transferase 18 U/L (0-40); Blood Urea Nitrogen 23 mg/dL (8-23); Calcium 9.6 mg/dL (8.5-10.5); Carbon Dioxide 21 mmol/L (22-29); Chloride 105 mmol/L (98-107); Creatinine Clr Calc Pharmacy 156.5184; Globulin 3.5 g/dL (1.3-4.6); Glucose 145 mg/dL (65-115); Osmolality Calculated 290 mOsm/kg (285-295); Sodium 137 mmol/L (136-145); Total Bilirubin 0.7 mg/dL (0.15-1.2); Total Protein 7.9 g/dL (6.6-8.7)
[2024-04-20 10:41] LABS: Anion Gap 15.5 (5-19); Potassium 4.5 mmol/L (3.5-5.1)
[2024-04-20 11:06] LABS: Amphetamines Screen Urine Negative (Negative); Barbiturates Screen Urine Negative (Negative); Benzodiazepines Screen Urine Negative (Negative); Cocaine Screen Urine Negative (Negative); Opiate Screen Urine Negative (Negative); PCP Screen Urine Negative (Negative); THC Screen Urine Positive (Negative)
[2024-04-20 11:17] LABS: Urine Appearance Clear (CLEAR); Urine Color Yellow (Yellow); pH Urine 5 (5-7)
[2024-04-20 11:18] LABS: Bilirubin Urine 1+ (Negative); Blood Urine 3+ (Negative); Glucose Urine UA Norm (Normal); Ketones Urine 1+ (Negative); Leukocyte Esterase Urine Negative (Negative); Nitrate Urine Negative (Negative); Protein Urine Trace (Negative); Urobilinogen Urine 1 mg/dL (Negative)
[2024-04-20 11:19] LABS: Add Urine Microscopic? YES
[2024-04-20 11:20] LABS: Bacteria Urine 1+ /hpf; Mucus Urine 2+ /hpf; Squamous Epithelial Cell Urine 0-4 /hpf (0-5); WBC Urine 0-4 /hpf (0-5)
[2024-04-20 11:21] LABS: Add Urine Culture? No
[2024-04-20] MEDS: iohexol 350 mg/mL 500 mL Btl (per mL) IV (12:01)
--- NOTE | 2024-04-20 12:41 | PC.PHAR ---
STATES PT NO LONGER TAKES ANY MEDICATIONS BUT WOULD LIKE TO SUGGEST SOMETHING FOR IRRITABILITY.
--- NOTE | 2024-04-20 15:47 | PM.HP ---
Providers/Chief Complaint Admitting Physician: Blanche Mandujano MD Primary Care Provider: Sofia Jarvis DO Chief Complaint: stroke like syptoms, high bp History of Present Illness Leroy Freeman is a 63 year old male who presented to the emergency room with chief complaint of his balance being off and some difficulty using his right upper extremity. His symptoms began Saturday. The first thing he noted was some difficulty with walking. Gait was unsteady. Denies any symptoms of dizziness but knew that things were not right. A day or so ago he started to notice abnormalities in his right upper extremity from elbow to the hand predominantly with some tingling. He has a history of peripheral neuropathy associated with diabetes but that has historically only involved his feet. The right upper extremity paresthesias are new. No reports of any acute vision changes this weekend. No speech or swallowing difficulties. He has never had similar symptoms before. No change in hearing. No fever or upper respiratory symptoms. He has not had any nausea or vomiting. His balance continued to be such that he was not able to take care of my girls which is a reference to his marijuana plants at home. It was this inability to take care of my girls that got him to come into the emergency room. His had tried to get him to come in over the weekend to no avail. Workup in the emergency room revealed significant abnormalities on noncontrasted CT of the head with large inferior right cerebellar infarction noted. There was loss of adjacent [place]ks[place]-white matter differentiation. Slight mass effect was also noted. Overall impression was subacute stroke likely onset on Saturday prior to admission, 3 days prior to admission. Gait remains unstable. Risk factors include tobacco use, hypertension, dyslipidemia and diabetes, no longer on treatment. He had been taking aspirin but stopped due to news media report suggesting it was not necessary anymore. He did take an aspirin the last couple of days. He has never had stroke before. No family history of stroke. His emergency room workup did reveal polycythemia with hemoglobin greater than 19. Review of old records show that back in 2019 hemoglobin was 17. He is not known to have sleep apnea. His indicates that he snores a little bit but she has not noted him stopping breathing during sleep. Never been found to have a low oxygen level when he has sought medical care. No known family history of polycythemia or blood clots. He himself though did have a DVT in his right lower extremity back in 2018. He was treated for that solitary event. 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 No other inciting factors. He does not really like going to the doctor. He was last here at [facility] for cardiology follow-up in 2021. Back in 2019 he was found to have severe single-vessel coronary artery disease and underwent stent placement to the mid LAD by Dr. Gutierrez. He says that he has never felt right since that happened. He began to have issues with hypertension thereafter and due to the elevation in blood pressures, he was not able to renew his [employer] license. 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 With the extent of changes noted on CT imaging and persistent symptoms he is being admitted to observation status for further workup particularly in light of polycythemia. Initial NIH stroke scale score 0 in ED. Review of Systems General: Reports: Other (ROS as per HPI or as otherwise noted here) Const: Denies: fever(s) or change in weight Eyes: Reports: other (Occasionally has transient double vision but no acute change recently) ENMT: Reports: other (No difficulty swallowing or handling saliva) Card: Reports: edema (Sometimes will have ankle edema resolves with rest); Denies: chest pain Resp: Denies: dyspnea GI: Denies: abdominal pain, nausea, vomiting, change in bowel habits or hematochezia : Reports: urinary frequency, difficulty starting urination and nocturia (X 5 per night); Denies: hematuria Musc: Reports: other (Right leg slightly larger than left since clot in 2018) Skin/Breast: Reports: other (Chronic skin changes right leg) Neuro: Reports: numbness in extremities (Right upper extremity new, both feet chronic with paresthesias), lack of coordination (Since Saturday) and difficulty walking (Since Saturday); Denies: weakness in extremities, frequent falls, dizziness, vertigo, confusion, behavioral changes, Slurred speech present, difficulty communicating thoughts or involuntary movements Cheng/Lymph: Denies: easy bruising or easy bleeding Medications/Allergies Home Medications Medication Instructions Recorded Confirmed Last Taken Type No Known Home Medications 04/20/24 04/20/24 Unknown History Allergies Allergy/AdvReac Type Severity Reaction Status Date / Time No Known Allergies Allergy Verified 03/15/22 13:24 PFSH Acute PFSH: Medical History (Updated 04/20/24 @ 17:07 by Blanche Mandujano MD) DVT (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 2018, local truck driver at the time, 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 for defined period of time, no recurrence 04/27 Diabetes mellitus, type II Dyslipidemia Hypertension Coronary artery disease Surgical History (Updated 04/20/24 @ 15:54 by Blanche Mandujano MD) History of cardiac catheterization 10/2020 Mid LAD 90% lesion stented, remaining vessels without stenosis History of coronary artery stent placement 10/2020 S/P cholecystectomy Family History (Updated 04/20/24 @ 17:21 by Blanche Mandujano MD) Father Cancer Mother Cancer Sister Hypertension Denies family history of Polycythemia Diabetes CAD (coronary artery disease) Clotting disorder Stroke Social History (Updated 04/20/24 @ 17:22 by Blanche Mandujano MD) Smoking and tobacco/nicotine status: current every day tobacco/nicotine user cigarettes Packs smoked per day: 1.25 Years cigarettes smoked: 45 Alcohol intake: never Substance/Drug Use: current Substance/Drug use frequency: daily Substance/Drug use type: Marijuana Vitals/I&O/Wt Last Vital Signs Temp 98.1 F 04/20/24 09:51 Pulse 65 04/20/24 14:52 Resp 18 04/20/24 14:52 BP 143/74 04/20/24 14:52 Pulse Ox 96 04/20/24 14:52 O2 Del Method Room Air 04/20/24 14:52 Weight last 48 hrs Weight 158.757 kg Physical Exam Narrative: Patient is awake and alert, able to provide history. Normocephalic. Extraocular movements are intact. Pupils are equal reactive. He does have some increased vascularity noted on his cheeks. No facial droop. Speech is clear. Mucous membranes are moist. Neck is supple. Lungs are clear to auscultation bilaterally without any rales rhonchi or wheezes. Cardiovascular exam reveals a regular rhythm. No murmurs or rubs noted. No carotid bruits appreciated. Abdomen is soft, nontender with positive bowel sounds. Extremities right lower extremity is slightly larger in diameter than left lower extremity but no pitting edema is appreciated. Chronic skin changes noted to right lower extremity, both some chronic stasis changes as well as skin discoloration. Handgrip is slightly weaker in the right hand compared to the left. Sensation is grossly intact. Moves all extremities. Gait and balance not currently assessed. Data 04/20/24 10:02 04/20/24 10:02 Other Labs: Radiology Impressions Head CT 04/20/24 09:54 IMPRESSION: 1. Large inferior RIGHT cerebellar infarct with loss of the adjacent barksdale-white matter differentiation. Age-indeterminate but this is not acute. Subacute to remote. No prior studies for comparison. There does appear to be slight mass effect along the midline suggesting this is probably subacute. 2. Additional scattered, bilateral areas of decreased attenuation in the cerebellum. Likely related to additional areas of small vessel ischemic disease. 3. No hemorrhage. Head/Neck CTA 04/20/24 10:28 IMPRESSION: 1. No significant cervical carotid artery stenosis. Small amount of plaque at the bifurcations. 2. No occlusion or significant atherosclerosis [place]. 3. Patent vertebral arteries. 4. Unremarkable [place]. Laboratory Results WBC 10.98 10^3/uL (3.29-11.43) 04/20/24 10:02 RBC 6.29 10^6/uL (3.85-5.65) H 04/20/24 10:02 Hgb 19.20 g/dL (11.27-16.99) H 04/20/24 10:02 Hct 56.2 % (37-53) H 04/20/24 10:02 MCV 89.3 fl (82-101) 04/20/24 10:02 MCH 30.5 pg (27-33) 04/20/24 10:02 MCHC 34.2 g/dL (30-55) 04/20/24 10:02 RDW 13.2 % (12.1-15.1) 04/20/24 10:02 Plt Count 157 10^3/cmm (157-399) 04/20/24 10:02 MPV 10.5 fL (7.4-10.4) H 04/20/24 10:02 Neut % (Auto) 61.5 % 04/20/24 10:02 Lymph % (Auto) 28.0 % 04/20/24 10:02 [place] % (Auto) 6.5 % 04/20/24 10:02 Eos % (Auto) 3.1 % 04/20/24 10:02 Baso % (Auto) 0.5 % 04/20/24 10:02 Neut # (Auto) 6.76 10^3/uL (1.8-7.7) 04/20/24 10:02 Lymph # (Auto) 3.1 10^3/uL (0.8-4.8) 04/20/24 10:02 [place] # (Auto) 0.7 10^3/uL (0.2-0.9) 04/20/24 10:02 Eos # (Auto) 0.3 10^3/uL (0.0-0.8) 04/20/24 10:02 Baso # (Auto) 0.1 10^3/uL (0.0-0.1) 04/20/24 10:02 Nucleated RBC % (auto) 0 % 04/20/24 10:02 Nucleated RBCs # 0.0 /100WBC 04/20/24 10:02 PT 13.50 SECONDS (12.1-14.9) 04/20/24 10:02 INR 1.00 (0.8-1.2) 04/20/24 10:02 APTT 29.5 SECONDS (23.9-36.7) 04/20/24 10:02 Sodium 137 mmol/L (136-145) 04/20/24 10:02 Potassium 4.5 mmol/L (3.5-5.1) 04/20/24 10:02 Chloride 105 mmol/L (98-107) 04/20/24 10:02 Carbon Dioxide 21 mmol/L (22-29) L 04/20/24 10:02 Anion Gap 15.5 (5-19) 04/20/24 10:02 BUN 23 mg/dL (8-23) 04/20/24 10:02 Creatinine 0.8 mg/dL (0.7-1.2) 04/20/24 10:02 GFR Calculation 98.0 mL/min (90-130) 04/20/24 10:02 Glucose 145 mg/dL (65-115) H 04/20/24 10:02 POC Glucose 159 mg/dL (70-110) H 04/20/24 10:24 Calculated Osmolality 290 mOsm/kg (285-295) 04/20/24 10:02 Calcium 9.6 mg/dL (8.5-10.5) 04/20/24 10:02 Total Bilirubin 0.7 mg/dL (0.15-1.2) 04/20/24 10:02 AST 18 U/L (0-40) 04/20/24 10:02 ALT 18 U/L (0-41) 04/20/24 10:02 Alkaline Phosphatase 79 U/L (40-130) 04/20/24 10:02 Total Protein 7.9 g/dL (6.6-8.7) 04/20/24 10:02 Albumin 4.4 g/dL (3.5-5.2) 04/20/24 10:02 Globulin 3.5 g/dL (1.3-4.6) 04/20/24 10:02 Urine Color Yellow (Yellow) 04/20/24 10:21 Urine Appearance Clear (CLEAR) 04/20/24 10:21 Urine pH 5 (5-7) 04/20/24 10:21 Ur Specific [place] 1.020 (1.005-1.030) 04/20/24 10:21 Urine Protein Trace (Negative) 04/20/24 10:21 Urine Glucose (UA) Norm (Normal) 04/20/24 10:21 Urine Ketones 1+ (Negative) H 04/20/24 10:21 Urine Blood 3+ (Negative) H 04/20/24 10:21 Urine Nitrate Negative (Negative) 04/20/24 10:21 Urine Bilirubin 1+ (Negative) H 04/20/24 10:21 Urine Urobilinogen 1 mg/dL (Negative) H 04/20/24 10:21 Ur Leukocyte Esterase Negative (Negative) 04/20/24 10:21 Urine RBC 5-10 /hpf (0-2) H 04/20/24 10:21 Urine WBC 0-4 /hpf (0-5) H 04/20/24 10:21 Ur Squamous Epith Cells 0-4 /hpf (0-5) H 04/20/24 10:21 Amorphous Sediment Not Reportable 04/20/24 10:21 Urine Bacteria 1+ /hpf (NONE) H 04/20/24 10:21 Urine Mucus 2+ /hpf 04/20/24 10:21 Urine Opiates Screen Negative ng/mL (Negative) 04/20/24 10:21 Ur Barbiturates Screen Negative ng/mL (Negative) 04/20/24 10:21 Ur Phencyclidine Scrn Negative ng/mL (Negative) 04/20/24 10:21 Ur Amphetamines Screen Negative ng/mL (Negative) 04/20/24 10:21 U Benzodiazepines Scrn Negative ng/mL (Negative) 04/20/24 10:21 Urine Cocaine Screen Negative ng/mL (Negative) 04/20/24 10:21 U Marijuana (THC) Screen Positive ng/mL (Negative) H 04/20/24 10:21 A&P Assessment and plan (1) Cerebellar stroke: Subacute right cerebellar ischemic stroke 3 days prior to admission with gait instability and some right upper extremity paresthesias since then. There is slight mass effect noted on CT imaging. No hemorrhaging appreciated. Other areas of likely small vessel ischemic disease in the cerebellum also noted. Primary risk factors for stroke include a known history of tobacco use, hypertension and diabetes along with hyperlipidemia without ongoing treatment. Additionally patient has polycythemia with hemoglobin today 19.2. He did take an aspirin a day the last couple of days but did not take regularly prior to that for some time. No known family history of stroke. 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 (2) Polycythemia: Review of 1 available previous labs from 2020 showed polycythemia than with hemoglobin at 17. I suspect this is secondary to longstanding smoking and likely hypoxemia although not hypoxic currently and does not recall ever having been identified as such. That said he does not go to the doctor very often. He does snore a little bit but does not report any stoppage of his breathing during sleep. No known family history of polycythemia. Other counts are good. Could be a contributor to #1 at current values in addition to classic risk factors for stroke. (3) Hypertension: Primary hypertension, not currently on any treatment at home (4) Dyslipidemia: Previous diagnosis, not currently on any treatment at home (5) Diabetes mellitus, type II: Previous diagnosis, not currently on any treatment at home. Has associated neuropathy with chronic paresthesias in both feet. (6) Coronary artery disease: Single-vessel coronary artery disease, [place] heart, [place] artery without angina. Underwent stent placement in 2020 to the mid LAD. (7) Nocturia: 5 times a night nocturia with urinary urgency and frequency also reported. Occasionally will have some ankle edema if he is been sitting up in a chair keeping his feet hanging down but typically resolves with sleeping in supine position. At this point in time. By description suspect prostatic hypertrophy plus or minus a component of diastolic dysfunction. (8) Smoker: Longstanding nicotine use with cigarettes. Began smoking in earnest in his mid teens though first experience of cigarettes was in single digits. (9) Marijuana use: Daily user Plan Observation admission for now Given his stroke and current hemoglobin level, will go on and request therapeutic phlebotomy of 1 unit Will initiate aspirin therapy and have recommended that he stay on this currently unless otherwise told not to take it by another physician Statin therapy Will check hemoglobin A1c and lipid panel in the morning Coagulation studies were checked in the ER Echocardiogram PT, OT, ST evaluations Presented outside of the window for tPA Serial neuroexams Telemetry monitoring For now we will monitor blood pressure but need to consider initiation of antihypertensive medication upon discharge Will monitor blood sugars to determine need for pharmacological management of diabetes upon discharge Would likely benefit from consideration of initiation of tamsulosin though not at the expense of taking other medications in this patient who is not currently taking any medications at all and has admitted to some financial challenges with medications in the past Reviewed with the patient that cigarette smoking cessation is one of the best ways to prevent future strokes; he has requested a nicotine patch which I have ordered Discussed with patient and his that currently his stroke symptoms are on the milder side and that plan of care as described is to try to decrease risk factors that we can for a recurrent stroke that is more severe. Patient indicated that he did not want to consider taking shots such as what he was taking when he was treated for blood clot back in 2018. He is not interested in consideration for sleep study as he will not wear anything over his face to sleep. He understands the reasons for such a test potentially being recommended under the circumstances of his stroke and elevated blood count and is making an informed decision not to consider. Reviewed with the patient that the elevated blood count is often from unrealized low oxygen levels in patients who smoke or who might have sleep apnea. Discussed that over time the low oxygen levels will lead to the body increasing production of red blood cells in an attempt to help the rest of the body. Also discussed that there are other potential reasons for polycythemia or the high red blood count and that follow-up after discharge with hematology/oncology would be recommended with a goal of trying to decrease risk of future strokes. Mr. Freeman and his are both given an opportunity to ask questions VTE prophylaxis: SCDs GI Prophylaxis: Not currently indicated Antibiotics: none Pending studies: Echocardiogram, PT, OT, ST evaluations, a.m. lipid panel, hemoglobin A1c and repeat hemoglobin Telemetry: Ordered x 24 to 48 hours secondary to stroke presentation [place]: not currently indicated Line(s): peripheral IVs Disposition plan: Home with outpatient follow up to Dr. Jarvis anticipated. Will also need follow-up with hematology regarding polycythemia, as discussed with hematology. I have added this to the discharge planning routine. Anticipate he will have at least aspirin therapy, statin therapy, possibly an antihypertensive agent, possibly an antidiabetic agent, possibly tamsulosin. Will need to help patient transition to having multiple new medications on board and be cognizant of potential financial challenges obtaining medications with prescription selections. Depending on therapy evaluations may require some outpatient therapy as well. Code Status: Full Code Supportive care otherwise Attestations Medical Necessity Statement*: Currently anticipate a stay less than two midnights in this gentleman presenting several days of the onset of stroke symptoms related to right cerebellar ischemic stroke. He is having significant gait and balance issues. Currently receiving therapeutic phlebotomy with monitoring and further workup for risk stratification as discussed above. Coding Level of Care Code 66510 High Time for a total of 80 minutes, includes reviewing past or interval history, examining/interviewing patient, placing orders, counseling patient/family/other support (Regarding smoking cessation and plan of care, planned phlebotomy), discussing plan of care with staff, communicating with other healthcare providers (Hematology) and documenting encounter Diagnoses Cerebellar stroke I63.9 Polycythemia D75.1 Hypertension I10 Dyslipidemia E78.5 Diabetes mellitus, type II E11.9 Coronary artery disease I25.10 Nocturia R35.1 Smoker F17.200 Marijuana use F12.90
--- NOTE | 2024-04-20 17:00 | PC.NURSE ---
Pt down to ICU for therapeutic phlebotomy
[2024-04-20] MEDS: sodium chloride 0.9% 1,000 ML 100 ML IV (17:18)
--- NOTE | 2024-04-20 17:26 | USCV_ITS ---
Leroy Freeman Age: 63 Gender: M : 1960 Exam Date: 04/20/2024 20:04 Ordering Phys: Blanche Mandujano MD Technologist: GREG Exam Location: [facility] Indication: RIGHT hemiparesis CVA. History of CAD s/p stent 2019. BP: 143 / 74 HR: 55 Rhythm: Sinus Technical Quality: Adequate with [employer] MEASUREMENTS (Male / Female) Normal Values 2D ECHO LV Diastolic Diameter PLAX 3.5 cm 4.2 - 5.9 / 3.9 - 5.3 cm IVS Diastolic Thickness 1.5 cm 0.6 - 1.0 / 0.6 - 0.9 cm IVS Systolic Thickness 1.7 cm LVPW Diastolic Thickness 1.6 cm 0.6 - 1.0 / 0.6 - 0.9 cm LVPW Systolic Thickness 2.3 cm LVOT Diameter 2.0 cm LV Ejection Fraction 2D Teich 61.9 % LV Ejection Fraction MOD 2C 76.4 % LV Ejection Fraction 2C AL 74.1 % LA Diameter 3.8 cm LA Sys Volume AL 91.5 cm cubed LA Sys Volume Index AL 30.7 cm cubed/m squared Aorta at Sinotubular Diameter 3.8 cm IVC Diameter 1.4 cm M-MODE LA Ao Ratio MM 1.7 AV Cusp Separation MM 2.4 cm DOPPLER AV Peak Velocity 143.0 cm/s LVOT Peak Velocity 121.0 cm/s AV Area Cont Eq vti 3.1 cm squared AV Area Cont Eq pk 2.7 cm squared MV Peak Velocity 99.0 cm/s MV Area PHT 3.7 cm squared Mitral E to A Ratio 1.5 PV Peak Velocity 108.0 cm/s FINDINGS Left Ventricle Normal left ventricular size, systolic function and wall thickness, with no regional wall motion abnormalities.left ventricular ejection fraction is estimated at 60 %. Normal diastolic filling pattern. Right Ventricle The right ventricle is normal in size and function. Right Atrium The right atrium is normal in size. Left Atrium The left atrium is normal in size. Mitral Valve Structurally normal mitral valve without significant stenosis or prolapse. There is no mitral regurgitation. Aortic Valve Structurally normal aortic valve without significant sclerosis or stenosis. There is no aortic regurgitation. Tricuspid Valve Structurally normal tricuspid valve without significant stenosis or regurgitation. Pulmonary artery systolic pressure is normal. Pulmonic Valve Structurally normal pulmonic valve without significant stenosis. There is no pulmonic regurgitation. Pericardium Normal pericardium without effusion. Aorta Normal ascending aorta dimension. IVC The inferior vena cava appears normal. CONCLUSIONS 1-Normal left ventricular size, systolic function and wall thickness, with no regional wall motion abnormalities.left ventricular ejection fraction is estimated at 60 %. Normal diastolic filling pattern. 2-There is no pericardial effusion. 3-There are no intracardiac masses. 4-No significant valve abnormalities. 5-Right atrial pressure is around 5 mm of mercury. Tia Gutierrez MD (Electronically Signed) Final Date: 21 April 2024 20:38 S
--- NOTE | 2024-04-20 17:34 | PC.NURSE ---
18 gauge placed upon arrival in right forearm for procedure. Start Time:1700 End Time: 1725 450g of blood removed Paitent tolerated procedure well. Continuous Cardiac and hemodynamic monitoring during procedure
[2024-04-20] MEDS: nicotine 21 mg Patch 1 PATCH TRANSDERMA (17:57)
--- NOTE | 2024-04-20 18:23 | PC.NURSE ---
Pt returned from [facility] phle[facility]. Passes Nurse Dysphagia Screen. Dinner arrives. Pt vomits small amount of undigested food after eating roast beef. Requests crackers, jello, and sandwich. Provided. Pt seems to tolerate this better.
[2024-04-20 21:06] LABS: Glucose Point of Care 175 mg/dL (70-110)
[2024-04-20] MEDS: atorvastatin 40 mg Tablet PO (21:59)
--- NOTE | 2024-04-20 23:37 | PC.NURSE ---
Patient refused his sliding scale humalog dose. Patient stated Well, that's a shot isn't it? I don't like that much. Tapeman informed him that yes, it is a shot but could be given in several different locations depending on preference. Patient stated Well, I don't use insulin at home. Don't exactly want to make that a habit. Tapeman provided education on the purpose of insulin, mechanism of action, how the sliding scale works, and risks of not using insulin. Patient still refusing, but agreed to recheck blood sugar in the morning and take a morning dose if needed per the sliding scale.
[2024-04-21] VITALS (7 sets, daily range): BP systolic 115–177; BP diastolic 75–92; PULSE 51–69; RESP 16–58; TEMP 36.3–36.7; O2SAT 94–98
[2024-04-21] MEDS: sodium chloride 0.9% 1,000 ML 100 ML IV ×3 (01:48→21:24)
[2024-04-21 05:25] LABS: Basophils # 0.1 10^3/uL (0.0-0.1); Basophils % 0.5 %; Eosinophils # 0.2 10^3/uL (0.0-0.8); Eosinophils % 2.1 %; Lymphocytes % 29.3 %; Mean Corpuscular HGB Conc 32.8 g/dL (30-55); Mean Corpuscular Hemoglobin 29.8 pg (27-33); Mean Corpuscular Volume 90.8 fl (82-101); Mean Platelet Volume 10.2 fL (7.4-10.4); Monocytes # 0.6 10^3/uL (0.2-0.9); Neutrophils # 6.25 10^3/uL (1.8-7.7); Neutrophils % 61.7 %; Nucleated Red Blood Cells % 0 %; Platelet Count 145 10^3/cmm (157-399); Red Blood Count 5.84 10^6/uL (3.85-5.65); Red Cell Distribution Width 13.3 % (12.1-15.1); White Blood Count 10.13 10^3/uL (3.29-11.43)
[2024-04-21 05:46] LABS: Chol HDL Ratio 6.38 mg/dL (1.0-5.00); Cholesterol 185 mg/dL (0-200); HDL Cholesterol 29 mg/dL (60-100); LDL Cholesterol Calculated 124 mg/dL (50-129); LDL HDL Ratio 4.28 RATIO (0.00-3.22); Triglycerides 158 mg/dL (0-150)
[2024-04-21] MEDS: perflutren protein-a microsphr 0.22 mg/mL SDV 3 mL IV (06:15)
[2024-04-21 06:22] LABS: Estmated Average Glucose 154
[2024-04-21 06:35] LABS: Glucose Point of Care 115 mg/dL (70-110)
--- NOTE | 2024-04-21 08:07 | US_ITS ---
WS: [id number] RENAL ULTRASOUND HISTORY: hematuria COMPARISON: None available. TECHNIQUE: 2-D and color Doppler imaging of the kidney submitted. Technically difficult and limited evaluation due to body habitus. Right kidney: 11.8 cm x 5.4 cm x 5.7 cm. Cortex: 1.5 cm Normal echogenicity with no hydronephrosis or mass. Left kidney: 12.2 cm x 5.1 cm x 5.9 cm. Cortex: 1.6 cm Normal echogenicity with no hydronephrosis or mass. Aorta: Poorly visualized. Urinary Bladder: Minimally distended. US/US renal BI* [id number] IMPRESSION: No hydronephrosis or mass identified. Technically limited study due to body hab itus.
[2024-04-21] MEDS: aspirin 325 mg Tablet PO (08:42)
[2024-04-21] MEDS: nicotine 21 mg Patch 1 PATCH TRANSDERMA (08:43)
[2024-04-21 08:48] LABS: Erythrocyte Sedimentation Rate 12 mm/hr (0-10)
--- NOTE | 2024-04-21 10:00 | PC.CHAP ---
Pastoral Care Encounter/Spiritual Assessment Type of Contact [] Declined ladle operator visit [] Patient/Family/Request visit [] Outpatient visit [] Follow-up visit [] Physician referral [] Code/Alert [x] Routine visit [] Staff referral [] Actively dying [] Patient sleeping [] Family support [] [] Out of room [] Palliative care [] [] Receiving care in room [] Pre-surgical visit [] Trauma [] Long length of stay [] ICU visit [] Other: Relational/Emotional Strength [x] Patient feels connected with others/family/visitors/staff [] Distress [] Loneliness/isolation [] Abandonment Spirituality of Patient [x] Person of Naya [] Attends Uatsdin of their Naya [x] Believes in Prayer [] Reads Bible or Sabianism materials [] There are Spiritual issues to be addressed Pie Dough Roller Interventions [x] Prayer [x] Active listening [] Non-anxious presence [x] Spiritual/emotional support [] Crisis/trauma care [] Spiritual counseling [] Bereavement support [] Provided bereavement packet [] Provided Bible/devotional materials [] Provided toy/stuffed animal, coloring book to patient or family member [] Provided Communion [] Anointing/[place] [] Salvation [x] Completed spiritual assessment [] Other: Impact on Illness or Injury [] Angry [] Fearful [] Anxious [] Often cries [] Exhaustion [] Unable to work [] Unable to attend voodoo [] Unable to walk/stand [] Unable to read [] Unable to drive [] Unable to eat/drink [] Unable to sleep [] Unable to be with family [] Patient intubated [] Other: Summary Time spent with patient 5 min
[2024-04-21 11:34] LABS: Glucose Point of Care 145 mg/dL (70-110)
--- NOTE | 2024-04-21 14:10 | PM.PN ---
Subjective Subjective: Patient was seen this morning, we discussed the CT scan findings, does report unsteadiness on his feet, will continue inpatient physical therapy we discussed his polycythemia, he is status post therapeutic phlebotomy, we discussed him following up with outpatient hematology oncology, he is a smoker, denies a history of sleep apnea Vitals/I&O/Wt Last Vital Signs Temp 98.1 F 04/21/24 07:32 Pulse 51 L 04/21/24 07:32 Resp 58 H 04/21/24 11:00 BP 144/77 04/21/24 11:00 Pulse Ox 97 04/21/24 11:00 O2 Del Method Room Air 04/21/24 11:00 04/20/24 04/21/24 04/21/24 22:59 06:59 14:59 Intake Total 970 / 970 1120 / 1120 Output Total 125 / 125 575 / 700 Balance -125 / -125 395 / 270 1120 / 1120 Weight last 48 hrs Weight 141.158 kg Weight 158.757 kg Physical Exam Const: COMMON NORMALS: no acute distress and patient oriented x3 Resp: COMMON NORMALS: normal respiratory effort, No retractions, No use of accessory muscles and clear to auscultation bilaterally AUSCULTATION: clear to auscultation bilaterally Cardio: COMMON NORMALS: regular rate, regular rhythm, S1 normal heart sound present and S2 normal heart sound present RATE: regular rate RHYTHM: regular rhythm HEART SOUNDS: S1 normal heart sound present and S2 normal heart sound present GI: COMMON NORMALS: Normal to inspection, nondistended, normoactive bowel sounds present and non-tender Extremity: COMMON NORMALS: no pedal edema Neuro: COMMON NORMALS: patient oriented x3, CN's II-XII intact bilaterally, moves all extremities and no focal motor deficits OTHER: Does report right arm numbness Psych: COMMON NORMALS: mental status grossly normal Data 04/21/24 05:10 04/20/24 10:02 A&P Assessment and plan (1) Cerebellar stroke: -Aspirin 325 mg, atorvastatin ? IV fluids ? Completed permissive hypertension window, blood pressure monitoring and control ? Cardiac echo?telemetry monitoring ? PT OT Subacute right cerebellar ischemic stroke 3 days prior to admission with gait instability and some right upper extremity paresthesias since then. There is slight mass effect noted on CT imaging. No hemorrhaging appreciated. Other areas of likely small vessel ischemic disease in the cerebellum also noted. Primary risk factors for stroke include a known history of tobacco use, hypertension and diabetes along with hyperlipidemia without ongoing treatment. Additionally patient has polycythemia with hemoglobin today 19.2. He did take an aspirin a day the last couple of days but did not take regularly prior to that for some time. No known family history of stroke. 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 (2) Polycythemia: -Potentially related to smoking history ? EPO levels, renal ultrasound, JAK2 testing -History of hypercoagulable events, history of CAD, requiring stenting, no history of cerebellar stroke Review of 1 available previous labs from 2020 showed polycythemia than with hemoglobin at 17. I suspect this is secondary to longstanding smoking and likely hypoxemia although not hypoxic currently and does not recall ever having been identified as such. That said he does not go to the doctor very often. He does snore a little bit but does not report any stoppage of his breathing during sleep. No known family history of polycythemia. Other counts are good. Could be a contributor to #1 at current values in addition to classic risk factors for stroke. -Status post therapeutic phlebotomy (3) Hypertension: Primary hypertension, not currently on any treatment at home (4) Dyslipidemia: Previous diagnosis, not currently on any treatment at home (5) Diabetes mellitus, type II: Previous diagnosis, not currently on any treatment at home. Has associated neuropathy with chronic paresthesias in both feet. (6) Coronary artery disease: Single-vessel coronary artery disease, [place] heart, [place] artery without angina. Underwent stent placement in 2020 to the mid LAD. (7) Nocturia: 5 times a night nocturia with urinary urgency and frequency also reported. Occasionally will have some ankle edema if he is been sitting up in a chair keeping his feet hanging down but typically resolves with sleeping in supine position. At this point in time. By description suspect prostatic hypertrophy plus or minus a component of diastolic dysfunction. (8) Smoker: Longstanding nicotine use with cigarettes. Began smoking in earnest in his mid teens though first experience of cigarettes was in single digits. (9) Marijuana use: Daily user Plan -Plan for today PT OT ? Cardiac echo ? Renal ultrasound ? JAK2 testing ? Aspirin, IV fluids, statin VTE prophylaxis: SCDs GI Prophylaxis: Not currently indicated Antibiotics: none Pending studies: Echocardiogram, PT, OT, ST evaluations, a.m. lipid panel, hemoglobin A1c and repeat hemoglobin Telemetry: Ordered x 24 to 48 hours secondary to stroke presentation [place]: not currently indicated Line(s): peripheral IVs Disposition plan: Home with outpatient follow up to Dr. Jarvis anticipated. Will also need follow-up with hematology regarding polycythemia, as discussed with hematology. I have added this to the discharge planning routine. Anticipate he will have at least aspirin therapy, statin therapy, possibly an antihypertensive agent, possibly an antidiabetic agent, possibly tamsulosin. Will need to help patient transition to having multiple new medications on board and be cognizant of potential financial challenges obtaining medications with prescription selections. Depending on therapy evaluations may require some outpatient therapy as well. Code Status: Full Code Supportive care otherwise Attestations Medical Necessity Statement*: Patient requires hospitalization, inpatient, greater than 2 midnights, for cerebellar stroke, polycythemia Diagnoses Cerebellar stroke I63.9 Polycythemia D75.1 Hypertension I10 Dyslipidemia E78.5 Diabetes mellitus, type II E11.9 Coronary artery disease I25.10 Nocturia R35.1 Smoker F17.200 Marijuana use F12.90
[2024-04-21 16:59] LABS: Glucose Point of Care 106 mg/dL (70-110)
[2024-04-21] MEDS: atorvastatin 40 mg Tablet PO (20:20)
[2024-04-21 21:19] LABS: Glucose Point of Care 125 mg/dL (70-110)
[2024-04-22] VITALS: BP 112/68; PULSE 65; RESP 20; TEMP 36.7; O2SAT 95
[2024-04-22 04:00] VITALS: BP 125/78; PULSE 61; RESP 18; TEMP 36.6; O2SAT 97
[2024-04-22 06:24] LABS: Glucose Point of Care 104 mg/dL (70-110)
[2024-04-22 08:00] VITALS: BP 125/78; PULSE 49; RESP 16; TEMP 36.6; O2SAT 97
[2024-04-22] MEDS: nicotine 21 mg Patch 1 PATCH TRANSDERMA (09:14)
[2024-04-22] MEDS: aspirin 325 mg Tablet PO (09:14)
[2024-04-22 10:27] LABS: Basophils % 0.4 %; Eosinophils # 0.3 10^3/uL (0.0-0.8); Eosinophils % 2.6 %; Hematocrit 52.5 % (37-53); Lymphocytes # 2.8 10^3/uL (0.8-4.8); Lymphocytes % 28.5 %; Mean Corpuscular HGB Conc 33.7 g/dL (30-55); Mean Corpuscular Hemoglobin 30.1 pg (27-33); Mean Corpuscular Volume 89.3 fl (82-101); Mean Platelet Volume 10.4 fL (7.4-10.4); Monocytes # 0.7 10^3/uL (0.2-0.9); Monocytes % 7.5 %; Neutrophils # 6.01 10^3/uL (1.8-7.7); Neutrophils % 60.6 %; Nucleated Red Blood Cells % 0 %; Platelet Count 141 10^3/cmm (157-399); Red Blood Count 5.88 10^6/uL (3.85-5.65); Red Cell Distribution Width 13.2 % (12.1-15.1); White Blood Count 9.91 10^3/uL (3.29-11.43)
[2024-04-22 11:04] LABS: Glucose Point of Care 117 mg/dL (70-110)
--- NOTE | 2024-04-22 11:10 | P.DS_ITS ---
Discharge Providers Date of Admission: 04/20/24 14:53 Date of Discharge: April 22, 2024 Attending Provider at Admission: Blanche Mandujano MD Attending Provider at Discharge: Raul Davies MD Primary Care Provider: Sofia Jarvis DO Diagnoses at Discharge Discharge Diagnosis (1) Cerebellar stroke: Status: Acute (2) Polycythemia: Status: Acute (3) Hypertension: Status: Chronic (4) Dyslipidemia: Status: Chronic (5) Diabetes mellitus, type II: Status: Chronic (6) Coronary artery disease: Status: Chronic (7) Nocturia: Status: Acute (8) Smoker: Status: Chronic (9) Marijuana use: Status: Chronic Reason for Visit Reason for Visit: stroke like syptoms, high bp Hospital Course Hospital Course Leroy Freeman is a 63 year old male who presented to the emergency room with chief complaint of his balance being off and some difficulty using his right upper extremity. His symptoms began Saturday. The first thing he noted was some difficulty with walking. Gait was unsteady. Denies any symptoms of dizziness but knew that things were not right. A day or so ago he started to notice abnormalities in his right upper extremity from elbow to the hand predominantly with some tingling. He has a history of peripheral neuropathy associated with diabetes but that has historically only involved his feet. The right upper extremity paresthesias are new. No reports of any acute vision changes this weekend. No speech or swallowing difficulties. He has never had similar symptoms before. No change in hearing. No fever or upper respiratory symptoms. He has not had any nausea or vomiting. His balance continued to be such that he was not able to take care of my girls which is a reference to his marijuana plants at home. It was this inability to take care of my girls that got him to come into the emergency room. His had tried to get him to come in over the weekend to no avail. Workup in the emergency room revealed significant abnormalities on noncontrasted CT of the head with large inferior right cerebellar infarction noted. There was loss of adjacent [place]-white matter differentiation. Slight mass effect was also noted. Overall impression was subacute stroke likely onset on Saturday prior to admission, 3 days prior to admission. Gait remains unstable. Risk factors include tobacco use, hypertension, dyslipidemia and diabetes, no longer on treatment. He had been taking aspirin but stopped due to news media report suggesting it was not necessary anymore. He did take an aspirin the last couple of days. He has never had stroke before. No family history of stroke. His emergency room workup did reveal polycythemia with hemoglobin greater than 19. Review of old records show that back in 2019 hemoglobin was 17. He is not known to have sleep apnea. His indicates that he snores a little bit but she has not noted him stopping breathing during sleep. Never been found to have a low oxygen level when he has sought medical care. No known family history of polycythemia or blood clots. He himself though did have a DVT in his right lower extremity back in 2018. He was treated for that solitary event. 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 No other inciting factors. He does not really like going to the doctor. He was last here at [facility] for cardiology follow-up in 2021. Back in 2019 he was found to have severe single-vessel coronary artery disease and underwent stent placement to the mid LAD by Dr. Gutierrez. He says that he has never felt right since that happened. He began to have issues with hypertension thereafter and due to the elevation in blood pressures, he was not able to renew his [employer] license. 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 With the extent of changes noted on CT imaging and persistent symptoms he is being admitted to observation status for further workup particularly in light of polycythemia. Patient presented to [facility] for subacute right cerebellar stroke, 3 days prior likely, with gait instability, right upper extremity paresthesias, was monitored as inpatient, out of tPA window, etiology likely multifactorial from history of hypertension, history of type 2 diabetes mellitus, smoking, possibly polycythemia as an etiology. During his hospitalization he received aspirin, statin, IV fluids, physical therapy, overall clinically improved. On discharge patient declined skilled nursing placement, because of his insurance he does not qualify for insurance coverage for outpatient physical therapy, he would have to pay [id number]. Nonetheless, I have recommended skilled nursing placement, for inpatient physical therapy however patient has declined. Thus patient was discharged home, instructions for physical therapy at home, ambulate with care, had a detailed discussion with his fall risk, discharged on aspirin, statin, I had a detailed discussion with patient that if he had any recurrent strokelike symptoms to immediately call 911 For his polycythemia, I have ordered EPO levels and JAK2 levels, polycythemia might be from undiagnosed sleep apnea, chronic smoking history, however polycythemia vera remains an etiology given his CAD history. He did receive therapeutic phlebotomy during his hospitalization, hemoglobin discharge is 17.7. Patient will follow-up with primary care provider in hematology oncology as outpatient for monitoring hemoglobin closely, he might even require further therapeutic phlebotomy if he were to have any worsening or developing symptoms of CAD or shortness of breath or strokelike symptoms. Patient is to follow with Dr. Mustafa as outpatient Smoking history, I had a lengthy discussion with patient and with his family members at bedside about quitting smoking, risk of morbidity and mortality, risk of further CVAs, risk of polycythemia, he voiced understanding, all Qs answered, discharged on nicotine patch I had concerns for undiagnosed sleep apnea, nocturnal hypoxia as an etiology behind his polycythemia however patient tells me that he will not use a sleep machine so he does not want to undergo a sleep study at this point. I advised him to reconsider, he tells me that he will think about it in the future For his type 2 diabetes mellitus, had detailed diabetic education, discharged on metformin, discharged with glucometer, discharged with instructions on blood sugar testing, follow-up with primary care provider as outpatient Hypertension, discharged on Norvasc 5 mg daily Physical Exam Const: COMMON NORMALS: no acute distress and patient oriented x3 Resp: COMMON NORMALS: normal respiratory effort, No retractions, No use of accessory muscles and clear to auscultation bilaterally AUSCULTATION: clear to auscultation bilaterally Cardio: COMMON NORMALS: regular rate, regular rhythm, S1 normal heart sound present and S2 normal heart sound present RATE: regular rate RHYTHM: regular rhythm HEART SOUNDS: S1 normal heart sound present and S2 normal heart sound present GI: COMMON NORMALS: Normal to inspection, nondistended, normoactive bowel sounds present and non-tender Extremity: COMMON NORMALS: no pedal edema Neuro: COMMON NORMALS: patient oriented x3, CN's II-XII intact bilaterally, moves all extremities and no focal motor deficits OTHER: Gait abnormal, unsteady on his feet, [id number] abnormal bilaterally, heel-to-toe Psych: COMMON NORMALS: mental status grossly normal Discharge Data Studies Completed and Pending Completed Studies During Hospitalization Category Date Time Status CT head thrombolytic [id number] Stat Cat Scan 04/20/24 09:54 Completed CTA head neck [CT angio headneck* [id number]] Stat Cat Scan 04/20/24 10:28 Completed CV. echo wo/w contrast [id number] Routine Ultrasound 04/20/24 17:26 Completed US renal BI* [id number] Routine Ultrasound 04/21/24 08:07 Completed Pending at discharge Category Date Time Status Erythropoietin Stat Lab 04/21/24 09:14 Received JAK2 [id number] Cascading Reflex Stat Lab 04/21/24 09:14 Received Radiology Impressions Head CT 04/20/24 09:54 IMPRESSION: 1. Large inferior RIGHT cerebellar infarct with loss of the adjacent [place]-white matter differentiation. Age-indeterminate but this is not acute. Subacute to remote. No prior studies for comparison. There does appear to be slight mass effect along the midline suggesting this is probably subacute. 2. Additional scattered, bilateral areas of decreased attenuation in the cerebellum. Likely related to additional areas of small vessel ischemic disease. 3. No hemorrhage. Head/Neck CTA 04/20/24 10:28 IMPRESSION: 1. No significant cervical carotid artery stenosis. Small amount of plaque at the bifurcations. 2. No occlusion or significant atherosclerosis [place]. 3. Patent vertebral arteries. 4. Unremarkable [place]. Renal Ultrasound 04/21/24 08:07 IMPRESSION: No hydronephrosis or mass identified. Technically limited study due to body habitus. Laboratory Results WBC 9.91 10^3/uL (3.29-11.43) 04/22/24 10:07 RBC 5.88 10^6/uL (3.85-5.65) H 04/22/24 10:07 Hgb 17.70 g/dL (11.27-16.99) H 04/22/24 10:07 Hct 52.5 % (37-53) 04/22/24 10:07 MCV 89.3 fl (82-101) 04/22/24 10:07 MCH 30.1 pg (27-33) 04/22/24 10:07 MCHC 33.7 g/dL (30-55) 04/22/24 10:07 RDW 13.2 % (12.1-15.1) 04/22/24 10:07 Plt Count 141 10^3/cmm (157-399) L 04/22/24 10:07 MPV 10.4 fL (7.4-10.4) 04/22/24 10:07 Neut % (Auto) 60.6 % 04/22/24 10:07 Lymph % (Auto) 28.5 % 04/22/24 10:07 [place] % (Auto) 7.5 % 04/22/24 10:07 Eos % (Auto) 2.6 % 04/22/24 10:07 Baso % (Auto) 0.4 % 04/22/24 10:07 Neut # (Auto) 6.01 10^3/uL (1.8-7.7) 04/22/24 10:07 Lymph # (Auto) 2.8 10^3/uL (0.8-4.8) 04/22/24 10:07 [place] # (Auto) 0.7 10^3/uL (0.2-0.9) 04/22/24 10:07 Eos # (Auto) 0.3 10^3/uL (0.0-0.8) 04/22/24 10:07 Baso # (Auto) 0.0 10^3/uL (0.0-0.1) 04/22/24 10:07 Nucleated RBC % (auto) 0 % 04/22/24 10:07 Nucleated RBCs # 0.0 /100WBC 04/22/24 10:07 ESR 12 mm/hr (0-10) H 04/21/24 05:10 PT 13.50 SECONDS (12.1-14.9) 04/20/24 10:02 INR 1.00 (0.8-1.2) 04/20/24 10:02 APTT 29.5 SECONDS (23.9-36.7) 04/20/24 10:02 Sodium 137 mmol/L (136-145) 04/20/24 10:02 Potassium 4.5 mmol/L (3.5-5.1) 04/20/24 10:02 Chloride 105 mmol/L (98-107) 04/20/24 10:02 Carbon Dioxide 21 mmol/L (22-29) L 04/20/24 10:02 Anion Gap 15.5 (5-19) 04/20/24 10:02 BUN 23 mg/dL (8-23) 04/20/24 10:02 Creatinine 0.8 mg/dL (0.7-1.2) 04/20/24 10:02 GFR Calculation 98.0 mL/min (90-130) 04/20/24 10:02 Glucose 145 mg/dL (65-115) H 04/20/24 10:02 POC Glucose 117 mg/dL (70-110) H 04/22/24 10:58 Estimat Average Glucose 154 04/21/24 05:10 Hemoglobin A1c 7.0 % (4.0-6.0) H 04/21/24 05:10 Calculated Osmolality 290 mOsm/kg (285-295) 04/20/24 10:02 Calcium 9.6 mg/dL (8.5-10.5) 04/20/24 10:02 Total Bilirubin 0.7 mg/dL (0.15-1.2) 04/20/24 10:02 AST 18 U/L (0-40) 04/20/24 10:02 ALT 18 U/L (0-41) 04/20/24 10:02 Alkaline Phosphatase 79 U/L (40-130) 04/20/24 10:02 Total Protein 7.9 g/dL (6.6-8.7) 04/20/24 10:02 Albumin 4.4 g/dL (3.5-5.2) 04/20/24 10:02 Globulin 3.5 g/dL (1.3-4.6) 04/20/24 10:02 Triglycerides 158 mg/dL (0-150) H 04/21/24 05:10 Cholesterol 185 mg/dL (0-200) 04/21/24 05:10 LDL Cholesterol, Calc 124 mg/dL (50-129) 04/21/24 05:10 HDL Cholesterol 29 mg/dL (60-100) L 04/21/24 05:10 LDL/HDL Ratio 4.28 RATIO (0.00-3.22) H 04/21/24 05:10 Cholesterol/HDL Ratio 6.38 mg/dL (1.0-5.00) H 04/21/24 05:10 Urine Color Yellow (Yellow) 04/20/24 10:21 Urine Appearance Clear (CLEAR) 04/20/24 10:21 Urine pH 5 (5-7) 04/20/24 10:21 Ur Specific [place] 1.020 (1.005-1.030) 04/20/24 10:21 Urine Protein Trace (Negative) 04/20/24 10:21 Urine Glucose (UA) Norm (Normal) 04/20/24 10:21 Urine Ketones 1+ (Negative) H 04/20/24 10:21 Urine Blood 3+ (Negative) H 04/20/24 10:21 Urine Nitrate Negative (Negative) 04/20/24 10:21 Urine Bilirubin 1+ (Negative) H 04/20/24 10:21 Urine Urobilinogen 1 mg/dL (Negative) H 04/20/24 10:21 Ur Leukocyte Esterase Negative (Negative) 04/20/24 10:21 Urine RBC 5-10 /hpf (0-2) H 04/20/24 10:21 Urine WBC 0-4 /hpf (0-5) H 04/20/24 10:21 Ur Squamous Epith Cells 0-4 /hpf (0-5) H 04/20/24 10:21 Amorphous Sediment Not Reportable 04/20/24 10:21 Urine Bacteria 1+ /hpf (NONE) H 04/20/24 10:21 Urine Mucus 2+ /hpf 04/20/24 10:21 Urine Opiates Screen Negative ng/mL (Negative) 04/20/24 10:21 Ur Barbiturates Screen Negative ng/mL (Negative) 04/20/24 10:21 Ur Phencyclidine Scrn Negative ng/mL (Negative) 04/20/24 10:21 Ur Amphetamines Screen Negative ng/mL (Negative) 04/20/24 10:21 U Benzodiazepines Scrn Negative ng/mL (Negative) 04/20/24 10:21 Urine Cocaine Screen Negative ng/mL (Negative) 04/20/24 10:21 U Marijuana (THC) Screen Positive ng/mL (Negative) H 04/20/24 10:21 Vitals Last Vital Signs Temp 97.9 F 04/22/24 08:00 Pulse 49 L 04/22/24 08:00 Resp 16 04/22/24 08:00 BP 125/78 04/22/24 08:00 Pulse Ox 97 04/22/24 08:00 O2 Del Method Room Air 04/22/24 04:00 Discharge Plan Discharge Patient Disposition: Home Condition: Stable Prescriptions: New atorvastatin 40 mg Tablet 40 mg PO BEDTIME 30 Days Qty: 30 0RF aspirin 325 mg Tablet 325 mg PO DAILY 30 Days Qty: 30 0RF nicotine 21 mg/24 hr Patch 24 Hour 1 patch transdermal DAILY 28 Days Qty: 28 0RF metformin 500 mg tablet 500 mg PO BID 30 Days Qty: 60 0RF (DME) glucometer testing kit See Rx Instructions .Route .MEDSUPPLY Qty: 1 0RF Rx Instructions: Glucometer testing kit Lancets #100 Strips #100 Norvasc 5 mg tablet 5 mg PO DAILY 30 Days Qty: 30 0RF Discharge Orders: Discharge Order (Routine); Ordered 04/22/24 Ordered By: Raul Davies Referrals: Ame Ames MD [Physician] - 1 week (We have notified your physician's clinic of the need for a follow-up appointment to be scheduled. If you have not heard from them within the next 2 business days, please call them directly. ) Stef Mustafa MD [Hospitalist] - 2 weeks (We have notified your physician's clinic of the need for a follow-up appointment to be scheduled. If you have not heard from them within the next 2 business days, please call them directly. ) Sofia Jarvis DO [Primary Care Provider] - 04/24/24 1:40 pm (please arrive by 1:25 to complete any paperwork ) Discharge Diet: Cardiac Discharge Activity: Resume usual activity Patient Instructions: Diabetes and Diet, How to Stop Smoking (DC), Cigarette Smoking and Your Health (GEN), Hypoglycemia in a Person with Diabetes (GEN), Type 2 Diabetes in Adults: New Diagnosis (GEN), Diabetic Kidney Disease (DC), Stroke (DC), What to Do if Your Blood Sugar is Low (ED), Diabetes and Exercise (DC), Opioid Safety Activity Restrictions/Additional Instructions: - For your stroke, please follow-up with neurology ? If you have any recurrent strokelike symptoms please call 911 ? Take aspirin and statin as prescribed -For your type 2 diabetes mellitus, I have discharged you with a glucometer, check blood sugars 3 times daily, record them in a blood sugar log, please bring them to your primary care physician's office ? Discharge on metformin 500 mg twice daily, please follow-up with primary care provider in 1 week to recheck kidney function and liver function ? For your type 2 diabetes mellitus, if blood sugar greater than 500 please go to the emergency room -Blood sugar less than 60 drink or juice or eat hard candy and go to the emergen cy room ? Please stop smoking ? For your polycythemia, please have your primary care provider and Dr. Mustafa monitor your hemoglobin, a if you have any chest pain or strokelike symptoms go to the emergency room Discharge Attestations Time Spent in Discharge Care*: greater than 30 min Time Spent in Smoking Cessation: more than 10 minutes Risk of stroke, CAD, risk of polycythemia, morbidity and mortality, risk of lung cancer Quality Metrics Clinical Quality Measures [ Cerebrovascular Accident { Contraindication to Antithrombotic: None; antithrombotic prescribed; Contraindication to Anticoagulation: Overlap treatment not indicated; Contraindication to Statin: None; Statin prescribed;}] Coding Level of Care Code 89281 Total time (in minutes) for Discharge: 45 Diagnoses Cerebellar stroke I63.9 Polycythemia D75.1 Hypertension I10 Dyslipidemia E78.5 Diabetes mellitus, type II E11.9 Coronary artery disease I25.10 Nocturia R35.1 Smoker F17.200 Marijuana use F12.90
[2024-04-22 12:10] VITALS: BP 125/78; PULSE 65; RESP 16; TEMP 36.6; O2SAT 97
[2024-04-24 14:35] LABS: Erythropoietin 5.7 mIU/mL (2.6-18.5)
== END 2024-04-22 12:10 | disposition home or self-care (01) ==
LOC: ER 13:49 → MEDSURG 16:04
PROVIDERS: Admitting Provider Hospitalist; Emergency Provider Family Medicine; PCP Family Medicine; Visit Provider Family Medicine
DX: I63.9 Cerebral infarction, unspecified (principal); D75.1 Secondary polycythemia; I10 Essential (primary) hypertension; E78.5 Hyperlipidemia, unspecified; E11.9 Type 2 diabetes mellitus without complications; I25.10 Atherosclerotic heart disease of native coronary artery without angina pectoris; R35.1 Nocturia; F12.90 Cannabis use, unspecified, uncomplicated; Z86.718 Personal history of other venous thrombosis and embolism; Z95.5 Presence of coronary angioplasty implant and graft; F17.210 Nicotine dependence, cigarettes, uncomplicated
CPT/HCPCS: 36415; 36416; 70450; 70496; 70498; 76770; 80053; 80061; 80306; 81001; 81270; 81279; 81339; 81479; 82668; 82962; 83036; 85025; 85610; 85651; 85730; 92523; 92610; 93005; 96360; 96361; 97110; 97161; 97165; 99285; C8929; G0378; J7030; Q9956; Q9967

== ENCOUNTER 2024-05-01 10:00 | Oncology outpatient (recurring) (ONCR) | payer BC, MEDICAID, SELFPAY ==
[2024-04-29 17:04] LABS: Basophils # 0.1 10^3/uL (0.0-0.1); Basophils % 0.7 %; Eosinophils # 0.5 10^3/uL (0.0-0.8); Eosinophils % 4.5 %; Hematocrit 55.9 % (37-53); Lymphocytes # 4.2 10^3/uL (0.8-4.8); Lymphocytes % 39.4 %; Mean Corpuscular HGB Conc 32.7 g/dL (30-55); Mean Corpuscular Volume 91.5 fl (82-101); Mean Platelet Volume 10.4 fL (7.4-10.4); Monocytes # 0.7 10^3/uL (0.2-0.9); Monocytes % 6.7 %; Neutrophils # 5.13 10^3/uL (1.8-7.7); Neutrophils % 48.2 %; Nucleated Red Blood Cells % 0 %; Platelet Count 184 10^3/cmm (157-399); Red Blood Count 6.11 10^6/uL (3.85-5.65); Red Cell Distribution Width 13.1 % (12.1-15.1); White Blood Count 10.63 10^3/uL (3.29-11.43)
[2024-04-29 17:25] LABS: Alanine Aminotransferase 22 U/L (0-41); Albumin Level 4.5 g/dL (3.5-5.2); Alkaline Phosphatase 79 U/L (40-130); Aspartate Amino Transferase 21 U/L (0-40); Blood Urea Nitrogen 25 mg/dL (8-23); Calcium 9.4 mg/dL (8.5-10.5); Carbon Dioxide 27 mmol/L (22-29); Chloride 101 mmol/L (98-107); Globulin 3.4 g/dL (1.3-4.6); Glomerular Filtration Rate 85.5 mL/min (90-130); Glucose 120 mg/dL (65-115); Iron 80 ug/dL (59-158); Osmolality Calculated 290 mOsm/kg (285-295); Percent Saturation 22.2 % (20-50); Sodium 137 mmol/L (136-145); Total Bilirubin 0.4 mg/dL (0.15-1.2); Total Iron Binding Capacity 359 mcg/dl; Total Protein 7.9 g/dL (6.6-8.7); Unsaturated Iron Binding 279 ug/dL (112-347)
[2024-04-29 17:37] LABS: LAB Peripheral Smear Sent for Review
[2024-04-29 17:40] LABS: Vitamin B12 334 pg/mL (232-1245)
[2024-04-29 18:08] LABS: Anion Gap 13.6 (5-19); Potassium 4.6 mmol/L (3.5-5.1)
[2024-04-29 18:43] LABS: Lactate Dehydrogenase 195 U/L (135-225)
[2024-05-01 10:16] VITALS: BP 132/83; PULSE 71; RESP 17; TEMP 36.6; O2SAT 94
[2024-05-01 11:05] VITALS: BP 134/82; PULSE 88; RESP 16; TEMP 36.6; O2SAT 96
[2024-05-04 11:59] LABS: Erythropoietin 6.9 mIU/mL (2.6-18.5)
== END 2024-05-03 23:59 | disposition home or self-care (01) ==
PROVIDERS: PCP Family Medicine; Visit Provider Internal Medicine Medical Oncology
DX: D75.1 Secondary polycythemia (principal); Z53.9 Procedure and treatment not carried out, unspecified reason
CPT/HCPCS: 36415; 80053; 81270; 81279; 82607; 82668; 83540; 83550; 83615; 85025; 99195

== ENCOUNTER 2024-06-29 13:37 | Oncology outpatient (recurring) (ONCR) | payer BC, MEDICAID, SELFPAY ==
--- NOTE | 2024-06-29 13:45 | USCV_ITS ---
Leroy Freeman Age: 63 Gender: M : 1960 Exam Date: 06/29/2024 14:03 Ordering Phys: Ame Ames MD Technologist: CT Exam Location: [facility] [place]_ Indication: cva, with bubble contrast BP: 120 / 75 HR: Rhythm: Sinus Technical Quality: Adequate MEASUREMENTS (Male / Female) Normal Values 2D ECHO LVOT Diameter 2.4 cm LV Ejection Fraction MOD 4C 69.8 % LV Ejection Fraction MOD 2C 59.4 % LV Ejection Fraction 2C AL 58.9 % LA Diameter 4.6 cm RA Systolic Volume 4C AL 76.2 ml RA Systolic Volume 4C MOD 75.1 ml LA Sys Volume AL 111.2 cm cubed LA Sys Volume Index AL 39.1 cm cubed/m squared Aorta at Sinotubular Diameter 2.5 cm M-MODE LA Ao Ratio MM 1.6 AV Cusp Separation MM 2.0 cm FINDINGS Left Ventricle Right Ventricle Right Atrium Left Atrium Mitral Valve Aortic Valve Tricuspid Valve Pulmonic Valve Pericardium Aorta IVC CONCLUSIONS Technically limited quality echocardiogram because of poor ultrasonic windows. LV systolic function is normal. Bubble study is suboptimal because of limited visualization and poor ultrasonic windows. However in one of the views few bubbles appear to cross over from right atrium to left atrium. Recommend LORENA if clinical scenario warrants it. Gabriel King MD (Electronically Signed) Final Date: 30 June 2024 12:09 S
== END 2024-07-04 23:59 | disposition home or self-care (01) ==
LOC: ONCMED 13:37 → RAD 14:10 → ONCMED 07-03 08:40
PROVIDERS: PCP Family Medicine; Visit Provider Internal Medicine Medical Oncology
DX: D75.1 Secondary polycythemia (principal); I63.9 Cerebral infarction, unspecified
CPT/HCPCS: C8924

== ENCOUNTER 2024-07-15 09:58 | Oncology outpatient (recurring) (ONCR) | payer BC, MEDICAID, SELFPAY ==
[2024-07-15 10:18] LABS: Basophils # 0.1 10^3/uL (0.0-0.1); Basophils % 0.4 %; Eosinophils # 0.6 10^3/uL (0.0-0.8); Eosinophils % 5.3 %; Hematocrit 51.8 % (37-53); Lymphocytes # 4.1 10^3/uL (0.8-4.8); Lymphocytes % 36.4 %; Mean Corpuscular HGB Conc 32.4 g/dL (30-55); Mean Corpuscular Hemoglobin 29.5 pg (27-33); Mean Platelet Volume 10.2 fL (7.4-10.4); Monocytes # 0.7 10^3/uL (0.2-0.9); Monocytes % 6.6 %; Neutrophils # 5.64 10^3/uL (1.8-7.7); Neutrophils % 50.7 %; Nucleated Red Blood Cells % 0 %; Platelet Count 203 10^3/cmm (157-399); Red Blood Count 5.69 10^6/uL (3.85-5.65); Red Cell Distribution Width 12.9 % (12.1-15.1); White Blood Count 11.15 10^3/uL (3.29-11.43)
[2024-07-15 10:34] LABS: Alanine Aminotransferase 13 U/L (0-41); Albumin Level 4.3 g/dL (3.5-5.2); Alkaline Phosphatase 84 U/L (40-130); Aspartate Amino Transferase 16 U/L (0-40); Blood Urea Nitrogen 23 mg/dL (8-23); Carbon Dioxide 27 mmol/L (22-29); Chloride 103 mmol/L (98-107); Globulin 3.3 g/dL (1.3-4.6); Glomerular Filtration Rate 85.5 mL/min (90-130); Glucose 127 mg/dL (65-115); Osmolality Calculated 291 mOsm/kg (285-295); Sodium 138 mmol/L (136-145); Total Bilirubin 0.4 mg/dL (0.15-1.2); Total Protein 7.6 g/dL (6.6-8.7)
== END 2024-08-03 23:59 | disposition home or self-care (01) ==
PROVIDERS: PCP Family Medicine; Visit Provider Internal Medicine Medical Oncology
DX: D75.1 Secondary polycythemia (principal)
CPT/HCPCS: 36415; 80053; 85025

== ENCOUNTER 2024-10-22 12:23 | Oncology outpatient (recurring) (ONCR) | payer BC, MEDICAID, SELFPAY ==
[2024-10-22 13:44] LABS: Basophils # 0.1 10^3/uL (0.0-0.1); Basophils % 0.7 %; Eosinophils # 0.6 10^3/uL (0.0-0.8); Eosinophils % 5.8 %; Hematocrit 52.9 % (37-53); Lymphocytes # 3.6 10^3/uL (0.8-4.8); Lymphocytes % 37.8 %; Mean Corpuscular HGB Conc 32.1 g/dL (30-55); Mean Corpuscular Hemoglobin 28.8 pg (27-33); Mean Corpuscular Volume 89.7 fl (82-101); Mean Platelet Volume 10.6 fL (7.4-10.4); Monocytes # 0.7 10^3/uL (0.2-0.9); Monocytes % 6.9 %; Neutrophils # 4.56 10^3/uL (1.8-7.7); Neutrophils % 48.3 %; Nucleated Red Blood Cells % 0 %; Platelet Count 169 10^3/cmm (157-399); Red Cell Distribution Width 13.3 % (12.1-15.1); White Blood Count 9.45 10^3/uL (3.29-11.43)
[2024-10-22 14:07] LABS: Alanine Aminotransferase 14 U/L (0-41); Albumin Level 4.2 g/dL (3.5-5.2); Alkaline Phosphatase 84 U/L (40-130); Anion Gap 16.3 (5-19); Aspartate Amino Transferase 13 U/L (0-40); Blood Urea Nitrogen 18 mg/dL (8-23); Calcium 9.3 mg/dL (8.5-10.5); Carbon Dioxide 25 mmol/L (22-29); Chloride 103 mmol/L (98-107); Creatinine Clr Calc Pharmacy 133.6787; Glomerular Filtration Rate 85.2 mL/min (90-130); Glucose 120 mg/dL (65-115); Osmolality Calculated 293 mOsm/kg (285-295); Potassium 4.3 mmol/L (3.5-5.1); Sodium 140 mmol/L (136-145); Total Bilirubin 0.4 mg/dL (0.15-1.2); Total Protein 7.2 g/dL (6.6-8.7)
[2024-10-22 15:29] VITALS: BP 133/85; PULSE 62; RESP 18; TEMP 36.6; O2SAT 95
== END 2024-11-03 23:59 | disposition home or self-care (01) ==
PROVIDERS: PCP Family Medicine; Visit Provider Internal Medicine Medical Oncology
DX: D75.1 Secondary polycythemia (principal)
CPT/HCPCS: 36415; 80053; 85025; 99195

== ENCOUNTER 2025-02-10 13:11 | Oncology outpatient (recurring) (ONCR) | payer BC, MEDICAID, SELFPAY ==
[2025-02-10 13:29] LABS: Basophils # 0.1 10^3/uL (0.0-0.1); Basophils % 0.5 %; Eosinophils # 0.4 10^3/uL (0.0-0.8); Eosinophils % 4.3 %; Hematocrit 54.7 % (37-53); Lymphocytes # 3.8 10^3/uL (0.8-4.8); Lymphocytes % 37.3 %; Mean Corpuscular HGB Conc 32.2 g/dL (30-55); Mean Corpuscular Hemoglobin 28.6 pg (27-33); Mean Corpuscular Volume 88.8 fl (82-101); Monocytes # 0.8 10^3/uL (0.2-0.9); Neutrophils % 49.4 %; Nucleated Red Blood Cells % 0 %; Platelet Count 177 10^3/cmm (157-399); Red Blood Count 6.16 10^6/uL (3.85-5.65); Red Cell Distribution Width 13.8 % (12.1-15.1)
[2025-02-10 14:11] LABS: Alanine Aminotransferase 12 U/L (0-41); Albumin Level 4.4 g/dL (3.5-5.2); Alkaline Phosphatase 85 U/L (40-130); Anion Gap 15.5 (5-19); Aspartate Amino Transferase 11 U/L (0-40); Blood Urea Nitrogen 23 mg/dL (8-23); Carbon Dioxide 23 mmol/L (22-29); Chloride 103 mmol/L (98-107); Globulin 3.3 g/dL (1.3-4.6); Glomerular Filtration Rate 85.2 mL/min (90-130); Glucose 132 mg/dL (65-115); Osmolality Calculated 290 mOsm/kg (285-295); Potassium 4.5 mmol/L (3.5-5.1); Sodium 137 mmol/L (136-145); Total Bilirubin 0.3 mg/dL (0.15-1.2); Total Protein 7.7 g/dL (6.6-8.7)
== END 2025-03-03 23:59 | disposition home or self-care (01) ==
PROVIDERS: Nurse Practitioner Family; PCP Family Medicine; Visit Provider Internal Medicine Medical Oncology
DX: D75.1 Secondary polycythemia (principal); I69.354 Hemiplegia and hemiparesis following cerebral infarction affecting left non-dominant side; Z87.891 Personal history of nicotine dependence
CPT/HCPCS: 36415; 80053; 85025; 99195

== ENCOUNTER 2025-05-12 13:19 | Oncology outpatient (recurring) (ONCR) | payer BC, MEDICAID, SELFPAY ==
[2025-05-12 13:45] LABS: Hematocrit 51.8 % (37-53); Hemoglobin 17.00 g/dL (11.27-16.99); Mean Corpuscular HGB Conc 32.8 g/dL (30-55); Mean Corpuscular Hemoglobin 29.5 pg (27-33); Mean Corpuscular Volume 89.9 fl (82-101); Nucleated Red Blood Cells % 0 %; Platelet Count 180 10^3/cmm (157-399); Red Blood Count 5.76 10^6/uL (3.85-5.65); White Blood Count 8.54 10^3/uL (3.29-11.43)
[2025-05-12 14:23] LABS: Alanine Aminotransferase 11 U/L (0-41); Albumin Level 4.1 g/dL (3.5-5.2); Alkaline Phosphatase 84 U/L (40-130); Anion Gap 17.5 (5-19); Aspartate Amino Transferase 12 U/L (0-40); Blood Urea Nitrogen 20 mg/dL (8-23); Calcium 9.2 mg/dL (8.5-10.5); Carbon Dioxide 23 mmol/L (22-29); Chloride 102 mmol/L (98-107); Creatinine Clr Calc Pharmacy 150.3885; Ferritin 50 ng/mL (30-400); Globulin 3.3 g/dL (1.3-4.6); Glucose 130 mg/dL (65-115); Iron 81 ug/dL (59-158); Osmolality Calculated 290 mOsm/kg (285-295); Potassium 4.5 mmol/L (3.5-5.1); Sodium 138 mmol/L (136-145); Total Iron Binding Capacity 356 mcg/dl; Total Protein 7.4 g/dL (6.6-8.7); Unsaturated Iron Binding 275 ug/dL (112-347)
[2025-05-12 16:15] VITALS: BP 127/82; PULSE 90; RESP 16; TEMP 36.1; O2SAT 98
== END 2025-06-03 23:59 | disposition home or self-care (01) ==
PROVIDERS: Internal Medicine; PCP Family Medicine; Visit Provider Nurse Practitioner Family
DX: D75.1 Secondary polycythemia (principal)
CPT/HCPCS: 36415; 80053; 82728; 83540; 83550; 83615; 85025; 85651; 86140; 99195

== ENCOUNTER 2025-08-11 13:43 | Oncology outpatient (recurring) (ONCR) | payer BC, MEDICAID, SELFPAY ==
[2025-08-11 14:17] LABS: Hematocrit 48.2 % (37-53); Hemoglobin 15.50 g/dL (11.27-16.99); Mean Corpuscular HGB Conc 32.2 g/dL (30-55); Mean Corpuscular Hemoglobin 27.9 pg (27-33); Mean Corpuscular Volume 86.8 fl (82-101); Nucleated Red Blood Cells % 0 %; Platelet Count 179 10^3/cmm (157-399); Red Blood Count 5.55 10^6/uL (3.85-5.65); White Blood Count 8.86 10^3/uL (3.29-11.43)
[2025-08-11 14:31] LABS: Alanine Aminotransferase 17 U/L (0-41); Albumin Level 4.3 g/dL (3.5-5.2); Alkaline Phosphatase 81 U/L (40-130); Anion Gap 14.4 (5-19); Aspartate Amino Transferase 17 U/L (0-40); Blood Urea Nitrogen 18 mg/dL (8-23); Calcium 8.9 mg/dL (8.5-10.5); Carbon Dioxide 24 mmol/L (22-29); Chloride 104 mmol/L (98-107); Creatinine Clr Calc Pharmacy 150.1111; Globulin 3.1 g/dL (1.3-4.6); Glucose 124 mg/dL (65-115); Osmolality Calculated 289 mOsm/kg (285-295); Potassium 4.4 mmol/L (3.5-5.1); Sodium 138 mmol/L (136-145); Total Protein 7.4 g/dL (6.6-8.7)
== END 2025-09-03 23:59 | disposition home or self-care (01) ==
PROVIDERS: PCP Family Medicine; Visit Provider Nurse Practitioner Family
DX: Z53.9 Procedure and treatment not carried out, unspecified reason; D75.1 Secondary polycythemia
CPT/HCPCS: 36415; 80053; 85025

== ENCOUNTER 2025-10-30 15:02 | Observation (INO) | payer SELFPAY ==
--- OUTSIDE RECORDS SUMMARY | 2025-10-26 15:20 | XMS_ITS | Encounter Summary ---
Author Organization [facility] Address [address] [place] [address] Care Team Providers Care Director Franchise Sales Name Role Phone MatheusSugeySofia L DO Primary Care Provider [phone] Reason for Referral * Eval and Treat (Routine) - Open Specialty Diagnoses / Procedures Referred By Contac t Referred To Contact Diagnoses Type 2 diabetes mellitus without complication, without long-term current use of insulin ([facility]) Procedures IL OFFICE/OUTPATIENT ESTABLISHED MOD MDM 30 MIN IL OFFICE/OUTPATIENT NEW MODERATE MDM 45 MINUTES Delmy Doyle FNP [address] [place] [address] Phone: tel: fax: Referral ID Status Reason Start Date Expiration Date Visits Re quested Visits Authorized [id number] Open 10/26/2025 10/26/2026 1 1 ROOM SUPERVISOR Reason for Visit * Reason Comments Follow Up 3 month f/u Chronic Conditions Coordination Encounter Details Date Type Department Care Team (Late st Contact Info) Description 10/26/2025 3:20 PM MAILROOM SUPERVISOR Office Visit [facility] [address] [place] [address] Delmy Doyle FNP [address] [place] [address] Muscle spasm (Primary Dx); Type 2 diabetes mellitus without complication, without long-term current use of insulin ([facility]); Benign hypertension Social History Tobacco Use Types Packs/Day Years Used Date Smoking Tobacco: Some Days Cigarettes Smokeless Tobacco: Never Alcohol Use Standard Drinks/Week Comments Not Currently 0 (1 standard drink = 0.6 oz pur e alcohol) Sex and Gender Information Value Date Recorded Sex Assigned at Not on file Legal Sex Male 10:13 PM MAILROOM SUPERVISOR Gender Identity Not on file Sexual Orientation Not on file documented as of this encounter Last Filed Vital Signs Vital Sign Reading Time Taken Comments Blood Pressure 124/76 10/26/2025 3:00 PM MAILROOM SUPERVISOR Pulse 100 10/26/2025 3:00 PM MAILROOM SUPERVISOR Temperature 36.7 C (98 F) 10/26/2025 3:00 PM MAILROOM SUPERVISOR Respiratory Rate 18 10/26/2025 3:00 PM MAILROOM SUPERVISOR Oxygen Saturation 94% 10/26/2025 3:00 PM MAILROOM SUPERVISOR Inhaled Oxygen Concentration - - Weight 153 kg (337 lb 3.2 oz) 10/26/2025 3:00 PM MAILROOM SUPERVISOR Height 193 cm (6' 4 ) 10/26/2025 3:00 PM MAILROOM SUPERVISOR Body Mass Index 41.05 10/26/2025 3:00 PM MAILROOM SUPERVISOR documented in this encounter Progress Notes * Delmy Doyle, ERICK - 10/26/2025 3:04 PM CST Chief Complaint Patient presents with Follow Up 3 month f/u Chronic Conditions Coordination Patient Active Problem List Diagnosis Code Cerebellar stroke ([facility]) I63.9 Benign hypertension I10 Polycythemia secondary to smoking D75.1 Cardiovascular disease I25.10 Type 2 diabetes mellitus without complication, without long-term current use of insulin ([facility]) E11.9 Mixed hyperlipidemia E78.2 Atherosclerosis of [place] coronary artery of [place] heart without angina pectoris I25.10 Morbid obesity ([facility]) E66.01 Benign prostatic hyperplasia with nocturia N40.1, R35.1 Subjective: Leroy Freeman is a 65 y.o. male present to [facility] today following up on chronic health conditions. Reports he occasionally gets muscle spasm usually at his sides of her legs and he has taking his 's Flexeril with improvement and he requests a muscle relaxer prescription. Regarding type 2 diabetes, he is currently on Jardiance 25 mg daily and Ozempic 0.5 mg weekly injection. His Ozempic was increased from 0.25 to 0.5 mg 3 months ago. Doing well without any side effect. 10 point review of systems is otherwise negative except as mentioned above. Past Medical History: Diagnosis Date Stroke (CMS/HCC) Current Outpatient Medications Medication Instructions amLODIPine (NORVASC) 5 mg, Oral, DAILY aspirin (YVETTE) 325 mg, DAILY blood sugar diagnostic Strip Use to check blood sugar daily as needed cyclobenzaprine (FLEXERIL) 10 mg, Oral, THREE TIMES DAILY PRN empagliflozin (Jardiance) 25 mg tablet TAKE ONE TABLET BY MOUTH DAILY EVERY MORNING. lancets Use to check blood sugar daily as needed nitroglycerin (NITROSTAT) 0.4 mg, Sublingual, EVERY 5 MINUTES PRN Ozempic 0.5 mg, subCUT, EVERY 7 DAYS tamsulosin (FLOMAX) 0.4 mg, Oral, DAILY No past surgical history on file. Past social, family, and medical history reviewed. BP 124/76 Pulse 100 Temp 98 ??F (36.7 ??C) Resp 18 Ht 6' 4 (1.93 m) Wt (!) 153 kg (337 lb 3.2 oz) SpO2 94% BMI 41.05 kg/m?? Physical Exam Constitutional: General: He is not in acute distress. Appearance: Normal appearance. He is not ill-appearing. HENT: Head: Normocephalic. Right Ear: External ear normal. Left Ear: External ear normal. Nose: Nose normal. Eyes: Conjunctiva/sclera: Conjunctivae normal. Cardiovascular: Rate and Rhythm: Normal rate and regular rhythm. Pulses: Normal pulses. Heart sounds: Normal heart sounds. No murmur heard. Pulmonary: Effort: Pulmonary effort is normal. No respiratory distress. Breath sounds: Normal breath sounds. Musculoskeletal: Right lower leg: No edema. Left lower leg: No edema. Skin: General: Skin is warm and dry. Neurological: Mental Status: He is alert and oriented to person, place, and time. Psychiatric: Mood and Affect: Mood normal. Behavior: Behavior normal. Lab Results Component Value Date/Time WBC 9.4 01/29/2025 02:26 PM HGB 17.6 (H) 01/29/2025 02:26 PM HCT 53.6 (H) 01/29/2025 02:26 PM PLT 193 01/29/2025 02:26 PM MCV 87.9 01/29/2025 02:26 PM Lab Results Component Value Date/Time NA 138 07/30/2025 02:52 PM K 4.4 07/30/2025 02:52 PM CL 107 07/30/2025 02:52 PM CO2 23 07/30/2025 02:52 PM CA 9.5 07/30/2025 02:52 PM BUN 19 07/30/2025 02:52 PM CREAT 0.98 07/30/2025 02:52 PM GLUCOSE 127 (H) 07/30/2025 02:52 PM TOTALPROTEIN 7.5 07/30/2025 02:52 PM ALBUMIN 4.4 07/30/2025 02:52 PM BILITOTAL 0.5 07/30/2025 02:52 PM ALKPHOS 78 07/30/2025 02:52 PM AST 14 07/30/2025 02:52 PM ALT 18 07/30/2025 02:52 PM ANIONGAP 17 10/10/2020 02:45 PM BCRATIO SEE NOTE: 07/30/2025 02:52 PM Lab Results Component Value Date/Time TSH 2.61 01/29/2025 02:26 PM Lab Results Component Value Date/Time CHOLTOT 243 (H) 01/29/2025 02:26 PM HDL 38 (L) 01/29/2025 02:26 PM LDLCALC 156 (H) 01/29/2025 02:26 PM TRIGLYCERIDE 316 (H) 01/29/2025 02:26 PM Lab Results Component Value Date/Time HGBA1C 7.7 (H) 07/30/2025 02:52 PM No results found for: MHVIGZAB33 No results found for: PPEJ712 , VITD25 , SPCD59MSK8 , JEIN37FWY6 , XAZO11HFFA , IFJL5FGJXTWZ , SCXX0CKQSSRS , VITAMINDTO , KZUEPCI559 No results found for: IRON , TIBC , FERRITIN No results found for: TESTOSTTO , FREETESTOSTE , TESTOSTFRE Assessment/Plan 1. Muscle spasm (Primary) Prescribed Flexeril for muscle spasm symptoms. - cyclobenzaprine (FLEXERIL) 10 mg tablet; Take 1 Tablet (10 mg) by mouth 3 times daily as needed for Spasm or Pain. Dispense: 90 Tablet; Refill: 11 2. Type 2 diabetes mellitus without complication, without long-term current use of insulin ([facility]) Too early for A1c level today. He will come back as a nurse visit next week to get blood draw. Continue with Jardiance 25 mg and Ozempic 0.5 mg weekly injection for now. May need to consider increaseOzempic if A1c level has not improved down below 7%. Continue with healthy lifestyle and dieting. Follow-up in 3 months. - AMB REFERRAL TO OPTOMETRY - CBC WITH DIFFERENTIAL; Future - HEMOGLOBIN A1C; Future - TSH; Future - COMPREHENSIVE METABOLIC PANEL; Future - LIPID PANEL; Future 3. Benign hypertension Blood pressure stable. Continue with amlodipine 5 mg daily. DEVANTE Hogan This note was created using One [employer] software. Attempts were made to correct any mistakes prior to signing this note. There is always a possibility that words were not transcribed correctly. ROOM SUPERVISOR documented in this encounter Plan of Treatment Upcoming Encounters Date Type Department Care Team (Late st Contact Info) Description 01/24/2026 1:40 PM CDT Office Visit [facility] [address] [place] [id number] Delmy Doyle FNP [address] [place] [address] Scheduled Orders Name Type Priority Associated Diagnoses Orde r Schedule CBC WITH DIFFERENTIAL Lab Routine Type 2 diabetes mellitus without complication, without long-term current use of insulin ([facility]) Expected: 10/26/2025, Expires: 10/26/2026 HEMOGLOBIN A1C Lab Routine Type 2 diabetes mellitus without complication, without long-term current use of insulin (CMS/HCC) Expected: 10/26/2025, Expires: 10/26/2026 TSH Lab Routine Type 2 diabetes mellitus without complication, without long-term current use of insulin (CMS/HCC) Expected: 10/26/2025, Expires: 10/26/2026 COMPREHENSIVE METABOLIC PANEL Lab Routine Type 2 diabetes mellitus without complication, without long-term current use of insulin ([facility]) Expected: 10/26/2025, Expires: 10/26/2026 LIPID PANEL Lab Routine Type 2 diabetes mellitus without complication, without long-term current use of insulin ([facility]) Expected: 10/26/2025, Expires: 10/26/2026 Scheduled Referrals Name Type Priority Associated Diagnoses Orde r Schedule AMB REFERRAL TO OPTOMETRY Outpatient Referral Routine Type 2 diabetes mellitus without complication, without long-term current use of insulin ([facility]) Ordered: 10/26/2025 documented as of this encounter Visit Diagnoses Diagnosis Muscle spasm- Primary Spasm of muscle Type 2 diabetes mellitus without complication, without long-term current use of insulin ([facility]) Benign hypertension Essential hypertension, benign documented in this encounter Care Teams Director Franchise Sales Relationship Specialty Start Date End Date Sofia Jarvis DO [address] [place] [address] PCP - General Family Practice 10/10/20 documented as of this encounter
[2025-10-30 15:07] VITALS: BP 110/79; PULSE 143; RESP 18; TEMP 36.4; O2SAT 93; BMI 41.9
--- NOTE | 2025-10-30 15:07 | ECG_ITS ---
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: : 1960 Requested By: Kuldip Howard Order Number: [id number] Pilo MD: PAOLA DUBOIS Measurements Intervals [place] Rate: 143 P: 0 KS: 0 QRS: -39 QRSD: 85 T: 52 QT: 278 QTc: 429 Interpretive Statements ATRIAL FLUTTER/TACHYCARDIA WITH RAPID VENTRICULAR RESPONSE LEFT AXIS DEVIATION [QRS AXIS < -30] PATTERN CONSISTENT WITH PULMONARY DISEASE ST DEPRESSION, CONSIDER SUBENDOCARDIAL INJURY [0.1+ mV ST DEPRESSION] Compared to ECG 04/20/2024 10:22:24 Left-axis deviation now present ST (T wave) deviation now present Sinus bradycardia no longer present Electronically Signed On 10-31-2025 22:57:08 [employer] by PAOLA DUBOIS [email or web address]
--- NOTE | 2025-10-30 15:07 | XRR_ITS ---
PROCEDURE INFORMATION: Exam: XR Chest Exam date and time: 10/30/2025 3:18 PM Age: 65 years old Clinical indication: PALPITATIONS TECHNIQUE: Imaging protocol: Radiologic exam of the chest. Views: 1 view. COMPARISON: CT angio headneck* [id number] 04/20/2024 11:45 AM FINDINGS: Limitations: Lordotic projection and rightward rotation noted. Lungs: Decreased lung volume on the right, hyperinflation on the left. No focal consolidation appreciated. Pleural spaces: Moderate pleural-parenchymal scarring in the right lower lung with blunting of the costophrenic angle. Heart/Mediastinum: Probable cardiomegaly. Bones/joints: Unremarkable. XR/XR chest 1V portable [id number] IMPRESSION: 1. No acute findings. Moderate right pleural-parenchymal scarring with decreased lung volume on the right, likely chronic. 3. Probable cardiomegaly.
--- OUTSIDE RECORDS SUMMARY | 2025-10-30 15:07 | XMS_ITS | Clinical Summary ---
Author Organization [facility] Address [address] [place]: [place] [address] Care Team Providers Care Blind Aide Name Role Phone Sofia Jarvis Zander MATTHEWS Primary Care Provider Allergies No known active allergies Medications aspirin (YVETTE) 325 mg tablet Take 325 mg by mouth daily. Active nitroglycerin (NITROSTAT) 0.4 mg Tablet, SublingualIndica tions:Cardiovasc ular disease Place 1 Tablet (0.4 mg) under tongue every 5 minutes as needed for Chest Pain. 30 Tablet 2 4 Active blood sugar diagnostic StripIndications :Type 2 diabetes mellitus without complication, without long-term current use of insulin ([facility]) Use to check blood sugar daily as needed 100 Each 3 4 Active lancetsIndicatio ns:Type 2 diabetes mellitus without complication, without long-term current use of insulin ([facility]) Use to check blood sugar daily as needed 100 Each 3 4 Active amLODIPine (NORVASC) 5 mg tabletIndication s:Benign hypertension take 1 tablet by mouth once daily 90 Tablet 3 5 Active empagliflozin (Jardiance) 25 mg tabletIndication s:Type 2 diabetes mellitus without complication, without long-term current use of insulin ([facility]),Cardio vascular disease TAKE ONE TABLET BY MOUTH DAILY EVERY MORNING. 90 Tablet 3 5 Active semaglutide (Ozempic) 0.25 mg or 0.5 mg (2 mg/3 mL) Pen InjectorIndicati ons:Type 2 diabetes mellitus without complication, without long-term current use of insulin ([facility]) Inject 0.5 mg by subcutaneous injection every 7 days. 9 mL 3 5 Active tamsulosin (FLOMAX) 0.4 mg capsuleIndicatio ns:Benign prostatic hyperplasia with nocturia Take 1 Capsule (0.4 mg) by mouth daily. 30 Capsule 11 5 Active cyclobenzaprine (FLEXERIL) 10 mg tabletIndication s:Muscle spasm Take 1 Tablet (10 mg) by mouth 3 times daily as needed for Spasm or Pain. 90 Tablet 11 5 Active Active Problems Problem Noted Date Diagnosed Date Benign prostatic hyperplasia with nocturia 07/30 Morbid obesity 01/29/2025 Atherosclerosis of lime co ronary artery of lime heart without angina pectoris 07/24/2024 Type 2 diabetes mellitus wit hout complication, without long-term current use of insulin 04/28/2024 Mixed hyperlipidemia 04/28/2024 Cerebellar stroke 04/24/2024 Benign hypertension 04/24/2024 Polycythemia secondary to smoking 04/24/2024 Cardiovascular disease 04/24/2024 Encounters Date Type Department Care Team Description 10/26/2025 3:20 PM 3D ARTIST Office Visit [facility] [address] [place] [phone] Delmy Doyle FNP Muscle spasm (Primary Dx); Type 2 diabetes mellitus without complication, without long-term current use of insulin ([facility]); Benign hypertension 10/26/2025 External Device Data [facility] ABSTRACTION Provider, Abstract 10/05/2025 External Device Data [facility] ABSTRACTION Provider, Abstract 07/31/2025 Results Follow-Up [facility] [address] [facility] [place] [address] Delmy Doyle FNP PSA, COMPREHENSIVE METABOLIC PANEL, HEMOGLOBIN A1C, MICROALBUMIN/CREATINI NE RATIO, RANDOM UR from Last 3 Months Family History Medical History Relation Name Comments Cancer Father Cancer Mother Relation Name Status Comments Father Mother Social History Tobacco Use Types Packs/Day Years Used Date Smoking Tobacco: Some Days Cigarettes Smokeless Tobacco: Never Tobacco Cessation:Ready to Q uit: Not Asked; Counseling Given: Yes Alcohol Use Standard Drinks/Week Comments Not Currently 0 (1 standard drink = 0.6 oz pur e alcohol) Sex and Gender Information Value Date Recorded Sex Assigned at Not on file Legal Sex Male 10:13 PM 3D ARTIST Gender Identity Not on file Sexual Orientation Not on file Last Filed Vital Signs Vital Sign Reading Time Taken Comments Blood Pressure 124/76 10/26/2025 3:00 PM 3D ARTIST Pulse 100 10/26/2025 3:00 PM 3D ARTIST Temperature 36.7 C (98 F) 10/26/2025 3:00 PM 3D ARTIST Respiratory Rate 18 10/26/2025 3:00 PM 3D ARTIST Oxygen Saturation 94% 10/26/2025 3:00 PM 3D ARTIST Inhaled Oxygen Concentration - - Weight 153 kg (337 lb 3.2 oz) 10/26/2025 3:00 PM 3D ARTIST Height 193 cm (6' 4 ) 10/26/2025 3:00 PM 3D ARTIST Body Mass Index 41.05 10/26/2025 3:00 PM 3D ARTIST Plan of Treatment Upcoming Encounters Date Type Department Care Team (Late st Contact Info) Description 01/24/2026 1:40 PM CDT Office Visit [facility] [address] [place] [phone] Delmy Doyle, [facility] [address] [place] [phone] Health Maintenance Due Date Last Done Comments DIABETES ANNUAL FOOT EXAM 1979 DIABETES ANNUAL RETINAL EXAM 1979 DTAP/TDAP/TD VACCINES (1 - Tdap) 1980 Preventative Visit-Managed Medicaid 1980 COLORECTAL SCREENING 2006 FIT/FOBT Q 1 year 2006 Flex Sig/CT Colonography Q 5 years 2006 RSV VACCINE (60+ or ) (1 - Risk 50-74 years 1-dose series) 2011 ZOSTER VACCINE (1 of 2) 2011 INFLUENZA VACCINE (#1) 2025 01/31/2021 DIABETES HBA1C Q 6 MONTHS 01/27/20262024, 04/30/2025, 01/29/2025, Additional history exists LDL CHOLESTEROL ANNUAL 01/29/2026 , 10/30/2024, 07/24/2024, Additional history exists DIABETES MICROALBUMIN ANNUAL SCREEN 07/30/2026 07/30/2025, 07/24/2024 DIABETES: A1C (Auto Order) 07/30/202607/30, 04/30/2025, 01/29/2025, Additional history exists Colorectal Cancer Screening 05/13/2027 FIT-DNA Q 3 years 05/13/2027 05/13/2024 Procedures Procedure Name Priority Date/Time Associated Diagnosis Comments MICROALBUMIN/CREATI NINE RATIO, RANDOM UR Routine 07/30/2025 2:52 PM CDT Type 2 diabetes mellitus without complication, without long-term current use of insulin (CMS/HCC) HEMOGLOBIN A1C Routine 07/30/2025 2:52 PM CDT Type 2 diabetes mellitus without complication, without long-term current use of insulin (CMS/HCC) LIPID PANEL Routine 01/29/2025 2:26 PM CDT Morbid obesity (CMS/HCC) Type 2 diabetes mellitus without complication, without long-term current use of insulin (CMS/HCC) Mixed hyperlipidemia Atherosclerosis of lime coronary artery of lime heart without angina pectoris Cardiovascular disease Benign hypertension COLON CANCER SCREEN, STOOL DNA Routine 05/13/2024 1:00 PM CDT Encounter for colorectal cancer screening from Last 3 Months or Most Recently Relevant to Health Maintenance Results * MICROALBUMIN/CREATININE RATIO, RANDOM UR (07/30/2025 2:52 PM CDT) CREATININE, URINE 97 20 - 320 mg/dL [facility] ALBUMIN, URINE 0.5 See Note: mg/dL [facility] Comment: Reference Range: Reference Range Not established ALB/CREAT RATIO, URINE 5 <30 mg/g creat [facility] Comment: The ADA defines abnormalities in albumin excretion as follows: Albuminuria Category Result (mg/g creatinine) Normal to Mildly increased <30 Moderately increased 30-299 Severely increased > OR = 300 The ADA recommends that at least two of three specimens collected within a 3-6 month period be abnormal before considering a patient to be within a diagnostic category. Test Performed at: [facility] [id number] [place] [address] Thomas Thrasher MD Urine URINE SPECIMEN OBTAINED BY CLEAN CATCH PROCEDURE / Unknown 07/30/2025 2:52 PM CDT 07/31/2025 4:14 AM CDT Delmy Doyle [facility] URINE ORDERABLES Final Res ult [facility] [phone] [facility] [address] [place], [place] [address] [place] [address] * (ABNORMAL) HEMOGLOBIN A1C (07/30/2025 2:52 PM CDT) HEMOGLOBIN A1C 7.7(H) <5.7 % [facility] Comment: For someone without known diabetes, a hemoglobin A1c value of 6.5% or greater indicates that they may have diabetes and this should be confirmed with a follow-up test. For someone with known diabetes, a value <7% indicates that their diabetes is well controlled and a value greater than or equal to 7% indicates suboptimal control. A1c targets should be individualized based on duration of diabetes, age, comorbid conditions, and other considerations. Currently, no consensus exists regarding use of hemoglobin A1c for diagnosis of diabetes for children. ESTIMATED AVERAGE GLUCOSE (MG/DL) 174 mg/dL [facility] ESTIMATED AVERAGE GLUCOSE (MMOL/L) 9.7 mmol/L [facility] Comment: Test Performed at: [facility] [id number] [facility] [place] [address] Thomas Thrasher MD Blood 07/30/2025 2:52 PM CDT 07/31/2025 3:30 AM CDT Delmy SUAREZ CHEMISTRY ORDERABLES Final Result [facility] [phone] [facility] [address] [facility] [place] [address] * (ABNORMAL) LIPID PANEL (01/29/2025 2:26 PM CDT) CHOLESTEROL 243(H) <200 mg/dL [facility] HDL 38(L) > OR = 40 mg/dL [facility] TRIGLYCERIDE 316(H) <150 mg/dL [facility] Comment: If a non-fasting specimen was collected, consider repeat triglyceride testing on a fasting specimen if clinically indicated. Ayo et al. J. of Clin. Lipidol. 2015;9:129-169. LDL CALCULATED 156(H) mg/dL (calc) [facility] Comment: Reference range: <100 Desirable range <100 mg/dL for primary prevention; <70 mg/dL for patients with CHD or diabetic patients with > or = 2 CHD risk factors. LDL-C is now calculated using the Nikolas-Tam calculation, which is a validated novel method providing better accuracy than the Friedewald equation in the estimation of LDL-C. Nikolas SS et al. CONSUELO. 2013;310(19): 7973-6570 (http://education.InviBox.BestTravelWebsites/faq/AQG309) CHOL/HDL RATIO 6.4(H) <5.0 (calc) [facility] NON-HDL CHOLESTEROL 205(H) <130 mg/dL (calc) [facility] Comment: For patients with diabetes plus 1 major ASCVD risk factor, treating to a non-HDL-C goal of <100 mg/dL (LDL-C of <70 mg/dL) is considered a therapeutic option. Test Performed at: [facility] [address] [facility] [place] [address] Thomas Thrasher MD Blood 01/29/2025 2:26 PM CDT 01/30/2025 3:26 AM CDT Delmy Doyle NUT ORCHARDIST CHEMISTRY ORDERABLES Final Result [facility] [phone] [facility] [facility] [address] [place] [address] * (ABNORMAL) COLON CANCER SCREEN, STOOL DNA (05/13/2024 1:00 PM CDT) COLOGUARD RESULT Positive( A) Negative [facility] Comment: POSITIVE TEST RESULT. A positive Cologuard result should be followed with a colonoscopy or visual examination of the colon. The normal value (reference range) for this assay is negative. TEST DESCRIPTION: Composite algorithmic analysis of stool DNA-biomarkers with hemoglobin immunoassay. Quantitative values of individual biomarkers are not reportable and are not associated with individual biomarker result reference ranges. Cologuard is intended for colorectal cancer screening of adults of either sex, 45 years or older, who are at average-risk for colorectal cancer (CRC). Cologuard has been approved for use by the U.S. FDA. The performance of Cologuard was established in a cross sectional study of average-risk adults aged 50-84. Cologuard performance in patients ages 45 to 49 years was estimated by sub-group analysis of near-age groups. Colonoscopies performed for a positive result may find as the most clinically significant lesion: colorectal cancer [4.0%], advanced adenoma (including sessile serrated polyps greater than or equal to 1cm diameter) [20%] or non- advanced adenoma [31%]; or no colorectal neoplasia [45%]. These estimates are derived from a prospective cross-sectional screening study of 10,000 individuals at average risk for colorectal cancer who were screened with both Cologuard and colonoscopy. (Sudhir Hill al, N Engl J Med 2014;370(14):4195-5143.) Cologuard may produce a false negative or false positive result (no colorectal cancer or precancerous polyp present at colonoscopy follow up). A negative Cologuard test result does not guarantee the absence of CRC or advanced adenoma (pre-cancer). The current Cologuard screening interval is every 3 years. ([place] [employer] Society and U.S. Multi-Society Task Force). Cologuard performance data in a 10,000 patient pivotal study using colonoscopy as the reference method can be accessed at the following location: www.exactlabs.com/results. Additional description of the Cologuard test process, warnings and precautions can be found at www.cologuard.com. Stool STOOL SPECIMEN / Unknown 05/13/2024 1:00 PM CDT 05/14/2024 3:20 PM CDT Delmy Diony Doyle NUT ORCHARDIST BODY FLUIDS AND STOOLS Fin al Result [facility] CLIA # [id number] [address] , [address] [place] [address] from Last 3 Months or Most Recently Relevant to Health Maintenance Insurance [facility] Care Teams Blind Aide Relationship Specialty Start Date End Date Sofia Jarvis DO [address] [place] [address] PCP - General Family Practice 10/10/20
--- OUTSIDE RECORDS SUMMARY | 2025-10-30 15:07 | XMS_ITS | Clinical Summary ---
Author Organization [facility] Address [address] [place] [address] Care Team Providers Care Wine Maker Name Role Phone Sofia Jarvis Primary Care Provider Allergies No known active allergies Medications aspirin (ECOTRIN EC) 81 mg Tablet, Delayed Release (E.C.) Take 81 mg by mouth 1 time daily as needed for Other (See Comment). Active clopidogreL (PLAVIX) 75 mg Tablet Take 75 mg by mouth daily. 11/19/2020 Active lisinopriL (PRINIVIL) 5 mg tablet Take 5 mg by mouth daily. 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 Gender Identity Not on file Sexual Orientation Not on file Last Filed Vital Signs Vital Sign Reading Time Taken Comments Blood Pressure 139/88 01/31/2021 9:53 AM CDT Pulse 101 01/31/2021 9:53 AM CDT Temperature 35.7 C (96.3 F) 01/31/2021 9:53 AM CDT Respiratory Rate - - Oxygen Saturation 97% 01/31/2021 9:53 AM CDT Inhaled Oxygen Concentration - - Weight 164.2 kg (362 lb) 01/31/2021 9:53 AM CDT Height 193 cm (6' 4 ) 01/31/2021 9:53 AM CDT Body Mass Index 44.06 01/31/2021 9:53 AM CDT Plan of Treatment Health Maintenance Due Date Last Done Comments DTAP/TDAP/TD VACCINES (1 - Tdap) 1980 COLORECTAL SCREENING 2006 Colorectal Cancer Screening 2006 FIT-DNA Q 3 years 2006 FIT/FOBT Q 1 year 2006 Flex Sig/CT Colonography Q 5 years 2006 ZOSTER VACCINE (1 of 2) 2011 INFLUENZA VACCINE (#1) 2025 01/31/2021 RSV VACCINE (60+ or ) (1 - 1-dose 75+ series) 2036 Care Teams Wine Maker Relationship Specialty Start Date End Date Sofia Jarvis DO [address] [place] [phone] PCP - General Family Practice 10/10/20
--- OUTSIDE RECORDS SUMMARY | 2025-10-30 15:07 | XMS_ITS | Encounter Summary ---
Author Organization [facility] Address [address] [place] [address] Care Team Providers Care Senior Android Developer Name Role Phone Sofia Jarvis DO Primary Care Provider Encounter Details Date Type Department Care Team (Late st Contact Info) Description 10/26/2025 External Device Data [facility] ABSTRACTION Provider, Abstract NO ADDRESS ON FILE Social History Tobacco Use Types Packs/Day Years Used Date Smoking Tobacco: Some Days Cigarettes Smokeless Tobacco: Never Alcohol Use Standard Drinks/Week Comments Not Currently 0 (1 standard drink = 0.6 oz pur e alcohol) Sex and Gender Information Value Date Recorded Sex Assigned at Not on file 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 Gender Identity Not on file Sexual Orientation Not on file documented as of this encounter Plan of Treatment Upcoming Encounters Date Type Department Care Team (Late st Contact Info) Description 01/24/2026 1:40 PM CDT Office Visit [facility] [place] [address] [place] [phone] Delmy Doyle FNP [address] [place] [address] documented as of this encounter Visit Diagnoses Not on filedocumented in this encounter Care Teams Senior Android Developer Relationship Specialty Start Date End Date Sofia Jarvis DO [address] [place] [address] PCP - General Family Practice 10/10/20 documented as of this encounter
--- NOTE | 2025-10-30 15:18 | W.ED.ARRPALP ---
HPI - Arrhythmia/Palpitations General: Chief Complaint: Arrhythmia/Palpitations Stated Complaint: High HR [place] Time Seen by Provider: 10/30/25 15:12 Source: patient Mode of arrival: ambulatory Limitations: no limitations History of Present Illness: 65-year-old male states that he has been having palpitations along with some lightheadedness symptoms going on for 4 to 5 hours. States he has checked his heart rate is elevated patient is in atrial flutter with RVR here with a heart rate in the 140s. He has no history of atrial fibs or flutter in the past. Does have a history of a stroke and coronary disease. He denies any chest pain denies any recent illness Related Data Home Medications ?Medication ?Instructions ?Recorded ?Confirmed marijuana 1 ea PO DAILY 04/29/24 10/30/25 amlodipine 5 mg tablet 5 mg PO DAILY 06/02/24 10/30/25 empagliflozin 25 mg tablet 25 mg PO DAILY 06/02/24 10/30/25 (Jardiance) semaglutide 0.25 mg or 0.5 mg (2 0.5 mg SUBCUT Q7D 05/12/25 10/30/25 mg/3 mL) subcutaneous pen injector (500[employer]riends) Super Beta Prostate Advanced 1 cap PO BID 10/30/25 10/30/25 aspirin 325 mg tablet 325 mg PO DAILY 10/30/25 10/30/25 tamsulosin 0.4 mg capsule 0.4 mg PO QPM 10/30/25 10/30/25 Previous Rx's ?Medication ?Instructions ?Recorded glucometer testing kit #1 ea 04/22/24 Allergies Allergy/AdvReac Type Severity Reaction Status Date / Time No Known Allergies Allergy Verified 10/30/25 15:11 Review of Systems Card: Reports: palpitations [facility] PFSH: Medical History (Updated 10/30/25 @ 17:29 by Kuldip Howard MD) Peripheral neuropathy Cerebellar stroke DVT (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, 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, 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 for defined period of time, no recurrence 04/27 Diabetes mellitus, type II Dyslipidemia Hypertension Coronary artery disease Surgical History History of cardiac catheterization 10/2020 Mid LAD 90% lesion stented, remaining vessels without stenosis History of coronary artery stent placement 10/2020 S/P cholecystectomy Family History Father Mesothelioma Mother Breast cancer Sister Hypertension Denies family history of Polycythemia Diabetes CAD (coronary artery disease) Clotting disorder Stroke Social History Smoking and tobacco/nicotine status: former use of tobacco/nicotine Quit status (tobacco/nicotine): has quit using Year quit tobacco: 2023 Former quit date comment: total use 40 years Alcohol intake: never Substance/Drug Use: current Substance/Drug use frequency: daily Physical Exam Const: COMMON NORMALS: no acute distress, patient oriented x3 and healthy appearing HENMT: COMMON NORMALS: normocephalic and atraumatic HEAD & SCALP: normocephalic and atraumatic Neck/C-Spine: COMMON NORMALS: full ROM and supple Chest: COMMONS NORMALS: normal inspection of the chest Resp: COMMON NORMALS: normal respiratory effort, No retractions, No use of accessory muscles and clear to auscultation bilaterally AUSCULTATION: clear to auscultation bilaterally Cardio: COMMON NORMALS: No murmurs present (Cardio) RATE: tachycardic RHYTHM: abnormal rhythm irregularly irregular Extremity: COMMON NORMALS: normal to inspection and full ROM Neuro: COMMON NORMALS: patient oriented x3, moves all extremities and no focal motor deficits Psych: COMMON NORMALS: mental status grossly normal, Normal thought process present and cooperative THOUGHT PROCESS: Normal thought process present Skin: COMMON NORMALS: no rashes or lesions noted and no wounds GENERAL SKIN EXAM: no rashes or lesions noted Course Vital Signs: Vital signs: Vital Signs Temperature 97.6 F 10/30/25 15:07 Pulse Rate 133 H 10/30/25 15:51 Respiratory Rate 16 10/30/25 15:51 Blood Pressure 133/90 10/30/25 15:51 Pulse Oximetry 94 10/30/25 15:51 Oxygen Delivery Me thod Room Air 10/30/25 15:36 MDM - Arrhythmia/Palpitations Medical Decision Making Patient presents here with atrial for both RVR new onset. Did give patient dose of Cardizem along with amiodarone and started him on amiodarone drip. Roughly an hour and then his amiodarone drip is converted to normal sinus rhythm. He said no chest pain no shortness of breath. Does have a history of polycythemia vera his hemoglobin here is 17.8. Did speak to the hospitalist Dr. Orta will admit for observation at this time for new onset A-fib. EKG interpreted by me at 1505 atrial flutter with RVR [address] elevation QRS 85 QTc 361 Medical Records I reviewed the patient's medical records. Lab Data I reviewed the patient's lab results. 10/30/25 15:22 10/30/25 15:42 Radiology Impressions Chest X-Ray 10/30/25 15:07 IMPRESSION: 1. No acute findings. Moderate right pleural-parenchymal scarring with decreased lung volume on the right, likely chronic. 3. Probable cardiomegaly. Laboratory Results WBC 12.25 10^3/uL (3.29-11.43) H 10/30/25 15:22 RBC 6.24 10^6/uL (3.85-5.65) H 10/30/25 15:22 Hgb 17.80 g/dL (11.27-16.99) H 10/30/25 15:22 Hct 55.0 % (37-53) H 10/30/25 15:22 MCV 88.1 fl (82-101) 10/30/25 15:22 MCH 28.5 pg (27-33) 10/30/25 15:22 MCHC 32.4 g/dL (30-55) 10/30/25 15:22 RDW 14.2 % (12.1-15.1) 10/30/25 15:22 Plt Count 234 10^3/cmm (157-399) 10/30/25 15:22 MPV 11.1 fL (7.4-10.4) H 10/30/25 15:22 Neut % (Auto) 47.6 % 10/30/25 15:22 Lymph % (Auto) 36.8 % 10/30/25 15:22 [place] % (Auto) 6.1 % 10/30/25 15:22 Eos % (Auto) 8.2 % 10/30/25 15:22 Baso % (Auto) 0.8 % 10/30/25 15:22 Neut # (Auto) 5.83 10^3/uL (1.8-7.7) 10/30/25 15:22 Lymph # (Auto) 4.5 10^3/uL (0.8-4.8) 10/30/25 15:22 [place] # (Auto) 0.8 10^3/uL (0.2-0.9) 10/30/25 15:22 Eos # (Auto) 1.0 10^3/uL (0.0-0.8) H 10/30/25 15:22 Baso # (Auto) 0.1 10^3/uL (0.0-0.1) 10/30/25 15:22 Nucleated RBC % (auto) 0 % 10/30/25 15:22 Nucleated RBCs # 0.0 /100WBC 10/30/25 15:22 Sodium 135 mmol/L (136-145) L 10/30/25 15:42 Potassium 4.0 mmol/L (3.5-5.1) 10/30/25 15:42 Chloride 101 mmol/L (98-107) 10/30/25 15:42 Carbon Dioxide 21 mmol/L (22-29) L 10/30/25 15:42 Anion Gap 17.0 (5-19) 10/30/25 15:42 BUN 18 mg/dL (8-23) 10/30/25 15:42 Creatinine 1.0 mg/dL (0.7-1.2) 10/30/25 15:42 GFR Calculation 75.2 mL/min (90-130) L 10/30/25 15:42 Glucose 148 mg/dL (65-115) H 10/30/25 15:42 Calculated Osmolality 285 mOsm/kg (285-295) 10/30/25 15:42 Calcium 8.5 mg/dL (8.5-10.5) 10/30/25 15:42 Total Bilirubin 0.3 mg/dL (0.15-1.2) 10/30/25 15:42 AST 12 U/L (0-40) 10/30/25 15:42 ALT 12 U/L (0-41) 10/30/25 15:42 Alkaline Phosphatase 82 U/L (40-130) 10/30/25 15:42 Total Protein 6.6 g/dL (6.6-8.7) 10/30/25 15:42 Albumin 3.6 g/dL (3.5-5.2) 10/30/25 15:42 Globulin 3.0 g/dL (1.3-4.6) 10/30/25 15:42 All radiology interpretation(s) finalized by discharge Discharge Plan Discharge Patient Disposition: Placed in Observation Clinical Impression: Atrial fibrillation with RVR Coding Level of Care Code ED Chemical Research Worker for Jb Rodriguez
[2025-10-30] MEDS: amiodarone 150 MG/100 ML PREMIX 400 MG IV (15:30)
[2025-10-30 15:31] LABS: Hematocrit 55.0 % (37-53); Hemoglobin 17.80 g/dL (11.27-16.99); Mean Corpuscular HGB Conc 32.4 g/dL (30-55); Mean Corpuscular Hemoglobin 28.5 pg (27-33); Mean Corpuscular Volume 88.1 fl (82-101); Nucleated Red Blood Cells % 0 %; Platelet Count 234 10^3/cmm (157-399); Red Blood Count 6.24 10^6/uL (3.85-5.65); White Blood Count 12.25 10^3/uL (3.29-11.43)
[2025-10-30 15:36] VITALS: BP 133/90; PULSE 138; RESP 18; O2SAT 92
[2025-10-30] MEDS: AMIODARONE HCL/D5W 900 MG/500 ML BAG 33.33 MG IV (15:46)
[2025-10-30 15:51] VITALS: BP 133/90; PULSE 133; RESP 16; O2SAT 94
[2025-10-30] MEDS: dilTIAZem 5 mg/mL SDV 5 mL 10 MG IVP (16:06)
[2025-10-30 16:13] LABS: Alanine Aminotransferase 12 U/L (0-41); Albumin Level 3.6 g/dL (3.5-5.2); Alkaline Phosphatase 82 U/L (40-130); Anion Gap 17.0 (5-19); Aspartate Amino Transferase 12 U/L (0-40); Blood Urea Nitrogen 18 mg/dL (8-23); Calcium 8.5 mg/dL (8.5-10.5); Carbon Dioxide 21 mmol/L (22-29); Chloride 101 mmol/L (98-107); Globulin 3.0 g/dL (1.3-4.6); Glucose 148 mg/dL (65-115); Osmolality Calculated 285 mOsm/kg (285-295); Potassium 4.0 mmol/L (3.5-5.1); Sodium 135 mmol/L (136-145); Total Protein 6.6 g/dL (6.6-8.7)
--- NOTE | 2025-10-30 17:28 | ECG_ITS ---
[employer] Test Date: 2025-10-30 Pat Name: Leroy Freeman Department: Room: Gender: Male Circulation Representative: : 1960 Requested By: Kuldip Howard Order Number: [id number] Pilo MD: PAOLA DUBOIS Measurements Intervals [place] Rate: 71 P: 46 [place]: 153 QRS: -15 QRSD: 100 T: 31 QT: 379 QTc: 414 Interpretive Statements SINUS RHYTHM LOW QRS VOLTAGE IN PRECORDIAL LEADS [QRS DEFLECTION < 1.0 mV IN CHEST LEADS] Compared to ECG 10/30/2025 15:05:29 Low QRS voltage now present Atrial flutter no longer present Left-axis deviation no longer present ST (T wave) deviation no longer present Electronically Signed On 10-31-2025 22:56:55 CNC LATHE MACHINE OPERATOR by PAOLA DUBOIS [id number]
[2025-10-30 17:49] VITALS: BP 109/67; PULSE 76; RESP 18; O2SAT 92
[2025-10-30 18:08] VITALS: BP 138/97; PULSE 78; RESP 15; TEMP 36.8; O2SAT 96
--- NOTE | 2025-10-30 18:12 | PM.HP ---
Providers/Chief Complaint Admitting Physician: Ernesto Banegas MD Primary Care Provider: Sofia Jarvis DO Chief Complaint: High HR [place] History of Present Illness Leroy Freeman is a 65 year old male no history of atrial fibrillation, first time episode of A-fib RVR when he presented to the ER. Started on amiodarone drip, patient spontaneously converted back to sinus rhythm per ER doctor. Pending EKG verification. Accordingly his vitals blood pressure 109/67, pulse rate 76 respirations 18 afebrile, saturating 92% on room air. Will start anticoagulation with p.o. meds, Eliquis 5 mg twice daily and transition from amiodarone gtt. to p.o. Cardizem +/- metoprolol. Patient tells me he used to be a heavy cigarette smoker, with secondary polycythemia, which has resolved since he quit smoking. He had a STEMI to the LAD in 2019, with stent placement. He had a left parietal stroke 1 year ago with residual right sided right arm weakness, and residual loss of sensation there. Today, patient stated that he just was feeling funny was having shortness of breath decreased exercise exertion, lightheadedness and palpitations and came to the ED. Patient was in A-fib RVR with heart rates in the 140s to 180s. Immediately cardioverted and he remains cardioverted on the monitor in the [facility]. I educated the patient about cardiovascular risk factors, and we decided to start a statin as well. Currently weaning off the amiodarone and transitioning to p.o. metoprolol succinate 50 mg once daily. Will observe the patient overnight for the effect of the medication and any more arrhythmias. Plan to discharge tomorrow morning and follow-up with primary care. Will obtain echocardiogram in the meantime to rule out any ischemic changes or wall motion abnormalities that could have triggered the A-fib. Medications/Allergies Home Medications ?Medication ?Instructions ?Recorded ?Confirmed ?Last Taken ?Type glucometer testing kit #1 ea 04/22/24 10/30/25 Unknown Rx marijuana 1 ea PO DAILY 04/29/24 10/30/25 Unknown History amlodipine 5 mg tablet 5 mg PO DAILY 06/02/24 10/30/25 10/30/25 History empagliflozin 25 mg tablet 25 mg PO DAILY 06/02/24 10/30/25 10/30/25 History (Jardiance) semaglutide 0.25 mg or 0.5 mg (2 0.5 mg SUBCUT Q7D 05/12/25 10/30/25 10/27/25 History mg/3 mL) subcutaneous pen injector (Ozempic) Super Beta Prostate Advanced 1 cap PO BID 10/30/25 10/30/25 10/30/25 History aspirin 325 mg tablet 325 mg PO DAILY 10/30/25 10/30/25 10/30/25 History tamsulosin 0.4 mg capsule 0.4 mg PO QPM 10/30/25 10/30/25 10/29/25 History Allergies Allergy/AdvReac Type Severity Reaction Status Date / Time No Known Allergies Allergy Verified 10/30/25 15:11 PFSH Acute PFSH: Medical History (Updated 10/30/25 @ 17:29 by Kuldip Howard MD) Peripheral neuropathy Cerebellar stroke DVT (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, 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, 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 for defined period of time, no recurrence 04/27 Diabetes mellitus, type II Dyslipidemia Hypertension Coronary artery disease Surgical History History of cardiac catheterization 10/2020 Mid LAD 90% lesion stented, remaining vessels without stenosis History of coronary artery stent placement 10/2020 S/P cholecystectomy Family History Father Mesothelioma Mother Breast cancer Sister Hypertension Denies family history of Polycythemia Diabetes CAD (coronary artery disease) Clotting disorder Stroke Social History Smoking and tobacco/nicotine status: former use of tobacco/nicotine Quit status (tobacco/nicotine): has quit using Year quit tobacco: 2023 Former quit date comment: total use 40 years Alcohol intake: never Substance/Drug Use: current Substance/Drug use frequency: daily Vitals/I&O/Wt Last Vital Signs Temp 97.6 F 10/30/25 15:07 Pulse 76 10/30/25 17:49 Resp 18 10/30/25 17:49 BP 109/67 10/30/25 17:49 Pulse Ox 92 10/30/25 17:49 O2 Del Method Room Air 10/30/25 15:36 10/30/25 10/30/25 10/30/25 06:59 14:59 22:59 Intake Total 1100 / 1100 Balance 1100 / 1100 Weight last 48 hrs Weight 152.135 kg Physical Exam Const: COMMON NORMALS: patient oriented x3 and alert GENERAL APPEARANCE: cooperative ORIENTATION/CONSCIOUSNESS: Yes awake HENMT: COMMON NORMALS: oropharynx normal Neck/C-Spine: COMMON NORMALS: no JVD Resp: COMMON NORMALS: normal respiratory effort and clear to auscultation bilaterally AUSCULTATION: clear to auscultation bilaterally Cardio: COMMON NORMALS: no JVD, regular rhythm, S1 normal heart sound present, S2 normal heart sound present and No murmurs present (Cardio) RHYTHM: regular rhythm HEART SOUNDS: S1 normal heart sound present and S2 normal heart sound present GI: COMMON NORMALS: Normal to inspection, nondistended, normoactive bowel sounds present, Soft to palpation and non-tender PALPATION: Yes Soft to palpation Extremity: COMMON NORMALS: no joint enlargement and no pedal edema Neuro: COMMON NORMALS: patient oriented x3 and moves all extremities SENSORIUM/ORIENTATION: Yes alert Skin: COMMON NORMALS: no rashes or lesions noted GENERAL SKIN EXAM: no rashes or lesions noted Data 10/30/25 15:22 10/30/25 15:42 A&P Assessment and plan 1. Atrial fibrillation with RVR: New onset atrial fibrillation with RVR, paroxysmal as patient is converted to sinus rhythm with the IV antiarrhythmic. Patient has many cardiovascular risk factors, former smoker, prior CVA, prior ND, obesity. ? Discontinue amiodarone at 9 PM tonight, transition to metoprolol succinate 50 mg p.o. daily ? Start atorvastatin high intensity statin 40 mg every afternoon ? Reduced full dose aspirin to 81 mg daily Continue Flomax Continue amlodipine 5 mg daily Start anticoagulation with apixaban 5 mg twice daily ? Follow-up echocardiogram, plan to discharge in a.m. if no abnormalities. Would benefit from follow-up with PCP, perhaps referral to cardiology for stress echo. DVT prophylaxis: Protonix DVT prophylaxis: AC with Eliquis PDMP PDMP Reviewed: Not Reviewed Attestations Medical Necessity Statement*: Patient was admitted for observation, on shelter monitor, now converted to sinus rhythm. Expect patient stay overnight and discharge in the morning. Coding Level of Care Code 57244 Diagnoses Atrial fibrillation with RVR I48.91
--- NOTE | 2025-10-30 18:15 | ECG_ITS ---
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: : 1960 Requested By: Ernesto Banegas Order Number: [id number] Pilo MD: PAOLA DUBOIS Measurements Intervals [place] Rate: 67 P: 44 [place]: 150 QRS: -21 QRSD: 103 T: 12 QT: 397 QTc: 420 Interpretive Statements SINUS RHYTHM WITH SINUS ARRHYTHMIA BORDERLINE LEFT AXIS DEVIATION [QRS AXIS < -20] LOW QRS VOLTAGE IN PRECORDIAL LEADS [QRS DEFLECTION < 1.0 mV IN CHEST LEADS] Compared to ECG 10/30/2025 17:28:47 No significant changes Electronically Signed On 10-31-2025 23:20:18 PRODUCTION LINE WELDER by PAOLA DUBOIS [email or web address]
--- NOTE | 2025-10-30 18:34 | PC.NURSE ---
patient is back in sinus rhythm. Dr Banegas notified and ordered to give metoprolol and then stop the amio at 2100.
[2025-10-30] MEDS: metoprolol succinate ER (24 HR) 50 mg Tablet PO (18:46)
[2025-10-30 18:48] VITALS: BMI 41.8
[2025-10-30 20:00] VITALS: BP 141/84; PULSE 58; RESP 26; TEMP 36.7; O2SAT 92
[2025-10-31] VITALS: BP 126/62; PULSE 61; RESP 21; TEMP 36.9; O2SAT 94
[2025-10-31 04:00] VITALS: BP 139/83; PULSE 72; RESP 18; TEMP 36.6
[2025-10-31] MEDS: metoprolol succinate ER (24 HR) 50 mg Tablet PO (04:49)
[2025-10-31 05:07] LABS: Hematocrit 49.2 % (37-53); Hemoglobin 15.70 g/dL (11.27-16.99); Mean Corpuscular HGB Conc 31.9 g/dL (30-55); Mean Corpuscular Hemoglobin 28.1 pg (27-33); Mean Corpuscular Volume 88.2 fl (82-101); Nucleated Red Blood Cells % 0 %; Platelet Count 158 10^3/cmm (157-399); Red Blood Count 5.58 10^6/uL (3.85-5.65); White Blood Count 10.29 10^3/uL (3.29-11.43)
[2025-10-31 05:39] LABS: Alanine Aminotransferase 12 U/L (0-41); Albumin Level 3.8 g/dL (3.5-5.2); Alkaline Phosphatase 87 U/L (40-130); Aspartate Amino Transferase 12 U/L (0-40); Blood Urea Nitrogen 20 mg/dL (8-23); Calcium 9.0 mg/dL (8.5-10.5); Carbon Dioxide 25 mmol/L (22-29); Chloride 102 mmol/L (98-107); Globulin 3.2 g/dL (1.3-4.6); Glucose 147 mg/dL (65-115); Magnesium 2.2 mg/dL (1.7-2.3); Osmolality Calculated 293 mOsm/kg (285-295); Sodium 139 mmol/L (136-145); Total Protein 7.0 g/dL (6.6-8.7)
[2025-10-31 05:40] LABS: Anion Gap 16.1 (5-19); Potassium 4.1 mmol/L (3.5-5.1)
[2025-10-31 08:00] VITALS: BP 142/78; PULSE 77; RESP 23; TEMP 37.1; O2SAT 94
[2025-10-31 11:06] VITALS: BP 156/94; PULSE 65; RESP 13; O2SAT 91
--- NOTE | 2025-10-31 11:19 | P.DS_ITS ---
Discharge Providers Date of Admission: 10/30/25 17:27 Date of Discharge: October 31, 2025 Attending Provider at Admission: Ernesto Banegas MD Attending Provider at Discharge: Ernesto Banegas MD Primary Care Provider: Sofia Jarvis DO Diagnoses at Discharge Discharge Diagnosis 1. Atrial fibrillation with RVR: Reason for Visit Reason for Visit: High HR [place] Brief History: Leroy Freeman is a 65 year old male no history of atrial fibrillation, first time episode of A-fib RVR when he presented to the ER. Started on amiodarone drip, patient spontaneously converted back to sinus rhythm per ER doctor. Pending EKG verification. Accordingly his vitals blood pressure 109/67, pulse rate 76 respirations 18 afebrile, saturating 92% on room air. Will start anticoagulation with p.o. meds, Eliquis 5 mg twice daily and transition from amiodarone gtt. to p.o. Cardizem +/- metoprolol. Patient tells me he used to be a heavy cigarette smoker, with secondary polycythemia, which has resolved since he quit smoking. He had a STEMI to the LAD in 2019, with stent placement. He had a left parietal stroke 1 year ago with residual right sided right arm weakness, and residual loss of sensation there. Today, patient stated that he just was feeling funny was having shortness of breath decreased exercise exertion, lightheadedness and palpitations and came to the ED. Patient was in A-fib RVR with heart rates in the 140s to 180s. Immediately cardioverted and he remains cardioverted on the monitor in the [facility]. I educated the patient about cardiovascular risk factors, and we decided to start a statin as well. Currently weaning off the amiodarone and transitioning to p.o. metoprolol succinate 50 mg once daily. Will observe the patient overnight for the effect of the medication and any more arrhythmias. Plan to discharge tomorrow morning and follow-up with primary care. Will obtain echocardiogram in the meantime to rule out any ischemic changes or wall motion abnormalities that could have triggered the A-fib. Hospital Course Hospital Course Patient was transition to p.o. prolonged amiodarone reassured off. Overnight he has small bursts of A-fib that eventually transition back to sinus rhythm. Patient is stable on metoprolol succinate, started Eliquis to his risk factors. With prior ND, CVA, diabetes history, patient has a [id number] score of 5. Anticoagulation indicated. Patient had echocardiogram performed prior to discharge just to confirm that he has no wall motion abnormalities. Follow-up with primary care for further cardiac disease risk management. Patient discharged in stable condition. Physical Exam Const: COMMON NORMALS: patient oriented x3 and alert GENERAL APPEARANCE: cooperative ORIENTATION/CONSCIOUSNESS: Yes awake HENMT: COMMON NORMALS: oropharynx normal Neck/C-Spine: COMMON NORMALS: no JVD Resp: COMMON NORMALS: normal respiratory effort and clear to auscultation bilaterally AUSCULTATION: clear to auscultation bilaterally Cardio: COMMON NORMALS: no JVD, regular rhythm, S1 normal heart sound present, S2 normal heart sound present and No murmurs present (Cardio) RHYTHM: regular rhythm HEART SOUNDS: S1 normal heart sound present and S2 normal heart sound present GI: COMMON NORMALS: Normal to inspection, nondistended, normoactive bowel sounds present, Soft to palpation and non-tender PALPATION: Yes Soft to palpation Extremity: COMMON NORMALS: no joint enlargement and no pedal edema Neuro: COMMON NORMALS: patient oriented x3 and moves all extremities SENSORIUM/ORIENTATION: Yes alert Skin: COMMON NORMALS: no rashes or lesions noted GENERAL SKIN EXAM: no rashes or lesions noted Discharge Data Studies Completed and Pending Completed Studies During Hospitalization Category Date Time Status XR chest 1V portable [id number] Stat Exams 10/30/25 15:07 Completed Pending at discharge Category Date Time Status CV. echo complete* [id number] Routine Ultrasound 10/31/25 20:16 Taken Radiology Impressions Chest X-Ray 10/30/25 15:07 IMPRESSION: 1. No acute findings. Moderate right pleural-parenchymal scarring with decreased lung volume on the right, likely chronic. 3. Probable cardiomegaly. Laboratory Results WBC 10.29 10^3/uL (3.29-11.43) 10/31/25 04:52 RBC 5.58 10^6/uL (3.85-5.65) 10/31/25 04:52 Hgb 15.70 g/dL (11.27-16.99) 10/31/25 04:52 Hct 49.2 % (37-53) 10/31/25 04:52 MCV 88.2 fl (82-101) 10/31/25 04:52 MCH 28.1 pg (27-33) 10/31/25 04:52 MCHC 31.9 g/dL (30-55) 10/31/25 04:52 RDW 14.1 % (12.1-15.1) 10/31/25 04:52 Plt Count 158 10^3/cmm (157-399) D 10/31/25 04:52 MPV 10.3 fL (7.4-10.4) 10/31/25 04:52 Neut % (Auto) 53.7 % 10/31/25 04:52 Lymph % (Auto) 31.6 % 10/31/25 04:52 [place] % (Auto) 6.6 % 10/31/25 04:52 Eos % (Auto) 6.8 % 10/31/25 04:52 Baso % (Auto) 0.7 % 10/31/25 04:52 Neut # (Auto) 5.53 10^3/uL (1.8-7.7) 10/31/25 04:52 Lymph # (Auto) 3.3 10^3/uL (0.8-4.8) 10/31/25 04:52 [place] # (Auto) 0.7 10^3/uL (0.2-0.9) 10/31/25 04:52 Eos # (Auto) 0.7 10^3/uL (0.0-0.8) 10/31/25 04:52 Baso # (Auto) 0.1 10^3/uL (0.0-0.1) 10/31/25 04:52 Nucleated RBC % (auto) 0 % 10/31/25 04:52 Nucleated RBCs # 0.0 /100WBC 10/31/25 04:52 Sodium 139 mmol/L (136-145) 10/31/25 04:52 Potassium 4.1 mmol/L (3.5-5.1) 10/31/25 04:52 Chloride 102 mmol/L (98-107) 10/31/25 04:52 Carbon Dioxide 25 mmol/L (22-29) 10/31/25 04:52 Anion Gap 16.1 (5-19) 10/31/25 04:52 BUN 20 mg/dL (8-23) 10/31/25 04:52 Creatinine 1.0 mg/dL (0.7-1.2) 10/31/25 04:52 GFR Calculation 75.2 mL/min (90-130) L 10/31/25 04:52 Glucose 147 mg/dL (65-115) H 10/31/25 04:52 Calculated Osmolality 293 mOsm/kg (285-295) 10/31/25 04:52 Calcium 9.0 mg/dL (8.5-10.5) 10/31/25 04:52 Phosphorus 3.0 mg/dL (2.5-4.5) 10/31/25 04:52 Magnesium 2.2 mg/dL (1.7-2.3) 10/31/25 04:52 Total Bilirubin 0.2 mg/dL (0.15-1.2) 10/31/25 04:52 AST 12 U/L (0-40) 10/31/25 04:52 ALT 12 U/L (0-41) 10/31/25 04:52 Alkaline Phosphatase 87 U/L (40-130) 10/31/25 04:52 Total Protein 7.0 g/dL (6.6-8.7) 10/31/25 04:52 Albumin 3.8 g/dL (3.5-5.2) 10/31/25 04:52 Globulin 3.2 g/dL (1.3-4.6) 10/31/25 04:52 Vitals Last Vital Signs Temp 98.7 F 10/31/25 08:00 Pulse 65 10/31/25 11:06 Resp 13 10/31/25 11:06 BP 156/94 10/31/25 11:06 Pulse Ox 91 10/31/25 11:06 O2 Del Method Room Air 10/31/25 04:00 Discharge Plan Discharge Patient Disposition: Home Condition: Stable Prescriptions: New atorvastatin 40 mg Tablet 40 mg PO BEDTIME 90 Days Qty: 90 0RF metoprolol succinate 50 mg Tablet Extended Release 24 Hr 50 mg PO DAILY 90 Days Qty: 90 0RF Eliquis 5 mg Tablet 5 mg PO BID@0900,2100 90 Days Qty: 180 0RF amlodipine 5 mg Tablet 10 mg PO DAILY 90 Days Qty: 90 0RF pantoprazole 40 mg Tablet,Delayed Release (Dr/Ec) 40 mg PO DAILY 60 Days Qty: 60 0RF aspirin 81 mg capsule 81 mg PO DAILY Qty: 30 0RF Continued marijuana 1 ea PO DAILY Ozempic 0.25 mg or 0.5 mg (2 mg/3 mL) pen injector 0.5 mg SUBCUT Q7D Rx Instructions: Saturday amlodipine 5 mg tablet 5 mg PO DAILY Jardiance 25 mg tablet 25 mg PO DAILY (DME) glucometer testing kit See Rx Instructions .Route .MEDSUPPLY Qty: 1 0RF Rx Instructions: Glucometer testing kit Lancets #100 Strips #100 tamsulosin 0.4 mg capsule 0.4 mg PO QPM Super Beta Prostate Advanced 1 cap PO BID Discontinued aspirin 325 mg Tablet 325 mg PO DAILY Referrals: Sofia Jarvis DO [Primary Care Provider, Family Practice] - 4-7 days Referral Note: Please call follow-up appointment with 4 to 7 days. Thank you! Discharge Diet: Cardiac and Diabetic Discharge Activity: Resume usual activity Patient Instructions: Metoprolol (By mouth) (Lopressor, Toprol XL), Aspirin (By mouth), Amlodipine (By mouth), Atorvastatin (By mouth) (Lipitor, Atorvaliq), Pantoprazole (By mouth) (Protonix), Apixaban (By mouth) (Eliquis), A-fib (Atrial Fibrillation) (DC), Opioid Safety, Patient Portal & [place] Instructions, Safe Use of Anticoagulants (DC), Blood Thinners (DC) Discharge Attestations Time Spent in Discharge Care*: greater than 30 min Quality Metrics Clinical Quality Measures [ No reported AMI, CVA or VTE this stay] Coding Level of Care Code 58382 Diagnoses Atrial fibrillation with RVR I48.91
[2025-10-31 12:27] VITALS: BP 146/78; PULSE 74; RESP 16; TEMP 37.1; O2SAT 95
--- NOTE | 2025-10-31 20:16 | USCV_ITS ---
Leroy Freeman Age: 65 Gender: M : 1960 Exam Date: 10/31/2025 09:52 Ordering Phys: Ernesto Banegas MD Technologist: Varinder Diez Exam Location: [facility] [place] Indication: new onset afib BP: 139 / 83 HR: 62 Rhythm: Sinus Technical Quality: Adequate MEASUREMENTS (Male / Female) Normal Values 2D ECHO LVOT Diameter 2.0 cm LV Ejection Fraction MOD 4C 63.0 % LV Ejection Fraction MOD 2C 66.4 % LV Ejection Fraction 2C AL 69.4 % LA Diameter 4.0 cm RA Systolic Volume 4C AL 62.0 ml RA Systolic Volume 4C MOD 62.4 ml LA Sys Volume AL 43.8 cm cubed LA Sys Volume Index AL 15.2 cm cubed/m squared Aorta at Sinotubular Diameter 2.9 cm IVC Diameter 1.9 cm DOPPLER AV Peak Velocity 115.0 cm/s LVOT Peak Velocity 97.0 cm/s AV Area Cont Eq vti 3.2 cm squared AV Area Cont Eq pk 2.6 cm squared MV Peak Velocity 120.0 cm/s MV Area PHT 6.4 cm squared Mitral E to A Ratio 0.9 TR Peak Velocity 278.0 cm/s TR Peak Gradient 30.9 mmHg TR Mean Velocity 222.0 cm/s TR Mean Gradient 20.8 mmHg TR Velocity Time Integral 89.6 cm PV Peak Velocity 111.0 cm/s RV Ejection Time 0.3 s FINDINGS Left Ventricle Normal left ventricular size, systolic function and wall thickness, with no regional wall motion abnormalities. Left ventricular ejection fraction is estimated at 60 %. Grade I/IV diastolic dysfunction (abnormal relaxation filling pattern), normal to mildly elevated filling pressures. Right Ventricle Normal right ventricular size and systolic function. Right Atrium Normal right atrial size. Left Atrium Normal left atrial size. IA Septum Normal appearance of the interatrial septum. Mitral Valve Normal mitral valve structure. No mitral valve stenosis or regurgitation. Aortic Valve Normal aortic valve structure. No aortic valve stenosis or regurgitation. Tricuspid Valve Normal tricuspid valve structure. No tricuspid valve stenosis or regurgitation. Normal pulmonary pressure. Pulmonic Valve Normal pulmonic valve structure. No pulmonic valve stenosis or regurgitation. Pericardium No pericardial effusion. Aorta Normal diameter of the aortic root and ascending thoracic aorta. IVC Normal IVC diameter. CONCLUSIONS Normal left ventricular size, systolic function and wall thickness, with no regional wall motion abnormalities. Left ventricular ejection fraction is estimated at 60 %. Grade I/IV diastolic dysfunction (abnormal relaxation filling pattern), normal to mildly elevated filling pressures. . Normal right ventricular size and systolic function. No significant valvular abnormalities. There is no pericardial effusion. Right atrial pressure is around 5 mm of mercury. Tia Gutierrez MD (Electronically Signed) Final Date: 31 October 2025 23:58 S
== END 2025-10-31 12:53 | disposition home or self-care (01) ==
LOC: ER 17:29 → CSU 17:55
PROVIDERS: Admitting Provider Internal Medicine; Emergency Provider Emergency Medicine; PCP Family Medicine; Visit Provider Internal Medicine
DX: I48.91 Unspecified atrial fibrillation (principal); Z79.82 Long term (current) use of aspirin; E11.9 Type 2 diabetes mellitus without complications; Z86.73 Personal history of transient ischemic attack (TIA), and cerebral infarction without residual deficits; Z86.718 Personal history of other venous thrombosis and embolism; E78.5 Hyperlipidemia, unspecified; I25.10 Atherosclerotic heart disease of native coronary artery without angina pectoris; G62.9 Polyneuropathy, unspecified; Z95.5 Presence of coronary angioplasty implant and graft; Z80.3 Family history of malignant neoplasm of breast; Z87.891 Personal history of nicotine dependence
CPT/HCPCS: 36415; 71045; 80053; 83735; 84100; 85025; 93005; 93306; A4222; G0378; J0282; J0283; J3490; J7030; J7040; J9999